=== PATIENT | female | born 1950 | race Caucasian/White ===

== ENCOUNTER → 2018-01-10 | Outpatient (CLI) | payer BC ==
[~2018-01-10] MED LIST: AMLO-110 PO; ETODOLAC PO; HYDR25TA4 PO; MULT-506 PO; PRLSR20 PO
== END | disposition home or self-care (01) ==
LOC: C.LABMFLN 13:01
PROVIDERS: ATTEND Physician Assistant
DX: N39.0 Urinary tract infection, site not specified (principal); E87.6 Hypokalemia

== ENCOUNTER 2018-01-31 09:17 | Day surgery (SDC) | payer BC ==
[2017-12-23 08:53] VITALS: BMI 28.0
[2017-12-23 09:04] VITALS: Ht 165.1 cm; Wt 77.9 kg
--- NOTE | 2017-12-23 09:35 | PAT Medication Instructions ---
Service Date Dec 23, 2017. Current Home Medication List Amlodipine (Norvasc), 5 MG PO QAM Hydrochlorothiazide (Hctz), 25 MG PO QAM Multivitamin (Multivitamin), 1 TAB PO QAM Omeprazole (Prilosec), 40 MG PO QAM [Etodolac], 300 MG PO QAM Medication Instructions For Your Scheduled Surgery -Contact your surgeon for instructions for: [Etodolac], 300 MG PO QAM - Hold the following medications the morning of surgery: Hydrochlorothiazide (Hctz), 25 MG PO QAM Multivitamin (Multivitamin), 1 TAB PO QAM - Take the following medications the morning of surgery with a sip of water: Amlodipine (Norvasc), 5 MG PO QAM Omeprazole (Prilosec), 40 MG PO QAM If you have any questions please call us at [phone] or [phone] or [phone]
[2017-12-23 11:02] LABS: BASO % 0.9 %; BASO ABS # 0.05 K/uL (0-0.2); EOS % 1.5 %; EOS ABS # 0.08 K/uL (0-0.5); HEMATOCRIT 42.5 % (37-47); HEMOGLOBIN 14.6 g/dL (12.0-16.0); IG# 0.01 K/uL (0.00-0.02); LYMPH % 20.7 %; MEAN CORPUSCULAR HEMOGLOBIN 31.3 pg (25-34); MEAN CORPUSCULAR HGB CONC 34.4 g/dl (32-36); MEAN PLATELET VOLUME 9.2 fL (7.4-10.4); MONO % 13.6 %; MONO ABS # 0.72 K/uL (0.11-0.59); NEUT % 63.1 %; NEUT ABS # 3.35 K/uL (1.4-6.5); PLATELET COUNT 328 K/uL (130-400); RED CELL DISTRIBUTION WIDTH CV 13.3 % (11.5-14.5); WHITE BLOOD COUNT 5.31 K/uL (4.8-10.8)
[2017-12-23 11:29] LABS: CREATININE 0.73 mg/dl (0.60-1.20)
--- NOTE | 2018-01-30 17:14 | History and Physical ---
History & Physical Date Jan 30, 2018. Chief Complaint left shoulder pain History of Present Illness The patient is a 68 year old female with complaints of chronic left shoulder pain. She denies any significant injury to the shoulder. She was treated conservatively but failed all conservative management. She had an MRI that showed a rotator cuff tear. She is now being set up for surgical management. Past Medical/Surgical History PMH: HTN, COPD, Depression/Anxiety, Acid reflux Social hx: 3/4 ppd smoker for 51 years. Surgical hx: cholecystectomy and hysterectomy Allergies Coded Allergies: Statins (Verified Allergy, Unknown, NAUSEA AND VOMITING, 12/23/17) Home Medications Scheduled Amlodipine (Norvasc), 5 MG PO QAM Hydrochlorothiazide (Hctz), 25 MG PO QAM Multivitamin (Multivitamin), 1 TAB PO QAM Omeprazole (Prilosec), 40 MG PO QAM [Etodolac], 300 MG PO QAM Physical Examination Skin: warm/dry, no rash Eyes: normal inspection ENT: normal ENT inspection Head: normocephalic, atraumatic Neck: supple, no adenopathy, trachea midline Respiratory/Chest: lungs clear, normal breath sounds, no respiratory distress Cardiovascular: regular rate, rhythm Abdomen / GI: normal bowel sounds, non tender Extremities: + pertinent finding (left shoulder: Painful PROM and AROM. Limited AROM secondary pain. + cross arm impingement. + empty can. + belly press. Decreased strength in all directions.) Neurologic/Psych: no motor/sensory deficits, alert, oriented x 3 Diagnosis left rotator cuff tear left subacromial impingement Left AC joint DJD. Plan of Treatment Recommend a left shoulder scope with rotator cuff repair, SAD, DCE. All potential risks, benefits, complications, alternatives, and rehab have been discussed and the patient wishes to proceed. She will be scheduled for 01.31.18.
[~2018-01-31] VITALS: Ht 165.1 cm; Wt 77.9 kg
[~2018-01-31 09:17] MED LIST changes: +CEFAZOLIN 1000MG IV PUSH 7.5 ML IV SCH; +LACTATED RINGER'S 1000ML 1,000 ML IV SCH; +ROPIVACAINE 0.5% 5 MG/ML 30 ML VIAL ONE
[2018-01-31 10:12] VITALS: BP 156/74; PULSE 67; TEMP 36.5; O2SAT 97
[2018-01-31] MEDS ORDERED: ONDANSETRON INJ 2 MG/ML 2 ML VIAL ONE (10:38)
[2018-01-31] MEDS ORDERED: MIDAZOLAM HCL 1 MG/ML 2ML VIAL ONE (10:38)
[2018-01-31] MEDS ORDERED: LIDOCAINE HCL 2% 2 ML VIAL (20MG/ML) ONE (10:38)
[2018-01-31] MEDS ORDERED: PROPOFOL IV EMULSION 10 MG/ML 20 ML VIAL IV ONE (10:38)
[2018-01-31] MEDS ORDERED: FENTANYL CITRATE INJ 50 MCG/1 ML 2 ML VIAL ONE (10:38)
[2018-01-31] MEDS ORDERED: DEXAMETHASONE SOD INJ 4 MG/ML VIAL ONE (10:38)
--- NOTE | 2018-01-31 11:01 | History & Physical Bridge Note ---
H&P Re-Evaluation Bridge Note: I have examined the patient, reviewed the History & Physical and in the interval since the performance of the History & Physical I have noted the following changes of clinical significance: No changes noted
[2018-01-31] MEDS ORDERED: EpINEphrine HCL INJ 1 MG/ML 1ML SYRINGE ONE ×2 (11:14→13:21)
[2018-01-31] MEDS ORDERED: BUPIVACAINE/EPINEPHRINE 0.5% MPF 1:200,000 30 ML VIAL ONE (12:24)
[2018-01-31] MEDS ORDERED: ROCURONIUM BROMIDE 10 MG/ML 5 ML VIAL IV ONE (12:26)
[2018-01-31] MEDS ORDERED: SODIUM CHLORIDE 0.9% INJ 10 ML VIAL ONE (12:26)
[2018-01-31] MEDS ORDERED: EpHEDrine SULFATE INJ 50 MG/ML AMP ONE (12:26)
[2018-01-31] MEDS ORDERED: EpHEDrine SULFATE INJ 50 MG/ML AMP IV PRN (12:30)
[2018-01-31] MEDS ORDERED: ONDANSETRON INJ 2 MG/ML 2 ML VIAL IV PRN ×2 (12:30→14:30)
[2018-01-31] MEDS ORDERED: ATROPINE SULFATE 0.1 MG/ML 5ML SYR IV PRN (12:30)
[2018-01-31] MEDS ORDERED: CEFAZOLIN SOD 1 GM VIAL ONE (13:16)
[2018-01-31] MEDS ORDERED: GLYCOPYRROLATE INJ 0.2 MG/ML VIAL ONE (13:16)
[2018-01-31] MEDS ORDERED: NEOSTIGMINE METHYLSULFATE 5 MG/5 ML SYR ONE (13:16)
[2018-01-31] MEDS ORDERED: LARYING-O-JET KIT (LTA) ONE (13:47)
--- NOTE | 2018-01-31 14:15 | [facility] Post Operative Brief Note ---
Immediate Operative Summary Operative Date Jan 31, 2018. Pre-Operative Diagnosis Left shoulder rotator cuff tear Left shoulder subacromial impingement Left Acromioclavicular Degenerative Joint Disease Post-Operative Diagnosis Left shoulder rotator cuff tear Left shoulder subacromial impingement Left Acromioclavicular Degenerative Joint Disease Left shoulder labral tear Left shoulder synovitis Procedure(s) Performed 1. Left Shoulder Arthroscopy 2. Subacromial Decompression with acromioplasty 3. Debridement of shoulder Labrum 4. Arthroscopic Synovectomy 5. Arthroscopic Distal Clavicle Excision 6. Arthroscopic Rotator Cuff Repair Surgeon Dr. Jan Pardo Payroll And Benefits Analyst Surgeon(s) German Fox PA-C Estimated Blood Loss 3cc Findings Consistent with Post-Op Diagnosis Specimens none per surgeon Drains None Anesthesia Type General Regional Complication(s) none Disposition Accompanied Pt To Recover: no Disposition: Recovery Room / PACU
[2018-01-31] MEDS ORDERED: PROM25TA9 PO (14:26)
[2018-01-31] MEDS ORDERED: OXYC-57 PO (14:26)
--- NOTE | 2018-01-31 14:27 | Discharge Instructions ---
Discharge Instructions Date of Service Jan 31, 2018. Admission Reason for Admission: Left Shoulder Impingement Syndrome, Osteoarthritis Discharge Discharge Diagnosis / Problem: left shoulder rotator cuff tear Discharge Goals Goal(s): Decrease discomfort, Improve function Activity Recommendations Activity Limitations: per Instructions/Follow-up section . Instructions / Follow-Up Instructions / Follow-Up U DISCHARGE INSTRUCTIONS: ROTATOR CUFF REPAIR SELF CARE INSTRUCTIONS A. You are permitted to loosen your sling/immobilizer to move your elbow, wrist , and hand to prevent stiffness. You should use your well arm (good arm) to assist the operated extremity when trying to raise the arm away from the body, hygiene purposes. Do NOT actively try to use/engage your shoulder muscles in operative arm at this time. You should NOT do overhead activity, lifting, or attempt to reach behind your back. B. You may/may not be instructed to start Physical Therapy upon discharge depending upon the size and difficulty of the repair. You will be provided a prescription for therapy with specific restrictions, if needed, at time of discharge. C. At 48 hours post-operatively, you may change your dressing. (Leave white steri-strips intact if present). Use band-aids and change daily. You are allowed to shower at this time and get the incision area wet, but DO NOT soak or submerge incision area in water. (No baths, swimming pools, hot tubs) D. Do NOT apply soap or any ointment/lotions directly over incision. E. You may use ice as needed to operative shoulder SPECIAL CARE INSTRUCTIONS: VERY IMPORTANT TO READ AND REVIEW A. There are a few signs you need to watch for after you are home. Call [facility] at [phone] if you experience any of the following: a. Increased severe shoulder pain. Some pain is expected especially when you exercise b. Increased swelling in your shoulder or arm; pain or swelling in either upper extremity. (Note: swelling and stiffness is normal and expected for several weeks post op, depending on type of shoulder surgery you had). c. Any fluid or drainage from the incision; redness of the incision. d. Shortness of breath or chest pain. B. Please call [facility] at [phone] if you have any questions or concerns about your operation or recovery. C. Call your physician if: a. Temperature is greater than 101 degrees (F). b. Pain is not relieved by prescribed pain medications. c. Increase drainage or redness from incision. d. Unanswered questions or concerns. D. Pain Medication: a. You will be prescribed pain medication upon discharge that should last till your first post-operative appointment. b. If you experience nausea and/or skin rash, discontinue this medication and contact our office for an alternative medication. c. Caution- narcotic pain medication can cause constipation. FOLLOW UP VISIT: Please call [facility] at [phone] to schedule a follow up appointment 10-14 days from your surgery date. Current Hospital Diet Patient's current hospital diet: Discharge Diet Recommended Diet: Regular Diet Procedures Procedures Performed: 1. Left Shoulder Arthroscopy 2. Subacromial Decompression with acromioplasty 3. Debridement of shoulder Labrum 4. Arthroscopic Synovectomy 5. Arthroscopic Distal Clavicle Excision 6. Arthroscopic Rotator Cuff Repair Pending Studies Studies pending at discharge: no Medical Emergencies . Who to Call and When: Medical Emergencies: If at any time you feel your situation is an emergency, please call 911 immediately. . Non-Emergent Contact Non-Emergency issues call your: Surgeon Call Non-Emergent contact if: temperature is above 101, your pain is not controlled, your pain is worsening, wound has increased drainage, wound has increased redness . "Provider Documentation" section prepared by German Fox. .
[2018-01-31] MEDS ORDERED: OXYCODONE HCL IR 5 MG TAB (IMMEDIATE RELEASE) PO PRN ×2 (14:30)
[2018-01-31] MEDS ORDERED: ACETAMINOPHEN 325 MG TAB PO PRN (14:30)
[2018-01-31] MEDS ORDERED: KETOROLAC TROMETHAMINE 30 MG/ML VIAL IV. PRN (14:30)
[2018-01-31] MEDS ORDERED: MoRPHine SULFATE 2 MG/ML CARP IV PRN (14:30)
[2018-01-31] MEDS ORDERED: OXYCODONE/ACETAMINOPHEN 5-325 TAB PO PRN (14:30)
--- NOTE | 2018-01-31 15:09 | Anesthesiology Progress Note ---
Anesthesia Post Op Note Date & Time Jan 31, 2018 at 15:09 Vital Signs Pain Intensity: 0 Vital Signs Past 12 Hours Date Time Temp Pulse Resp B/P (MAP) Pulse Ox O2 Delivery O2 Flow Rate FiO2 01/31/18 14:55 64 16 138/61 93 Nasal Cannula 2 01/31/18 14:45 62 16 157/60 93 Nasal Cannula 4 01/31/18 14:35 67 16 154/56 93 Nasal Cannula 4 01/31/18 14:26 36.0 97 16 154/63 95 Nasal Cannula 4 01/31/18 10:12 36.5 67 20 156/74 (101) 97 Room Air Notes Mental Status: alert / awake / arousable, participated in evaluation Pt Amnestic to Procedure: Yes Nausea / Vomiting: adequately controlled Pain: adequately controlled Airway Patency, RR, SpO2: stable & adequate BP & HR: stable & adequate Hydration State: stable & adequate Anesthetic Complications: no major complications apparent Anesthetic Complications: block is functioning well.
[2018-01-31 15:46] VITALS: BP 122/56; PULSE 58; TEMP 36.6; O2SAT 92
--- NOTE | 2018-01-31 19:16 | OPERATIVE REPORT ---
DATE OF OPERATION: 01/31/2018 PREOPERATIVE DIAGNOSES: 1. Left shoulder rotator cuff tear. 2. Tear of the glenoid labrum. 3. Subacromial impingement syndrome. 4. Acromioclavicular joint degenerative joint disease. 5. Synovitis POSTOPERATIVE DIAGNOSES: 1. Left shoulder rotator cuff tear. 2. Tear of the glenoid labrum. 3. Subacromial impingement syndrome. 4. Acromioclavicular joint degenerative joint disease. 5. Synovitis PROCEDURE: 1. Left shoulder arthroscopy with arthroscopic rotator cuff repair. 2. Debridement of the glenoid labrum. 3. Subacromial decompression with acromioplasty. 4. Distal clavicle excision of 10 mm distal clavicle. 5. Arthroscopic synovectomy of the shoulder. SURGEON: Jan Pardo DO WOOD MILLING MACHINE OPERATOR: German Fox PA-C who was present for patient positioning, sterile prep and drape, management of retractors and instruments. He was present through the critical portions of the case including wound closure, application of sterile dressing and transport of the patient to recovery. ANESTHESIA: General endotracheal tube with regional block. SPECIMENS: None. DRAINS: None. COMPLICATIONS: None. BLOOD LOSS: 2 mL PERTINENT HISTORY: This is a 68-year-old female with chronic progressive ongoing left shoulder pain particularly with abduction and external rotation. This has been ongoing for over 6 months. The patient attempted and failed conservative management including physical therapy, physician-directed home exercises, anti-inflammatories, steroid injection, rest, and activity modification. She had an MRI which demonstrated a full thickness rotator cuff tear, left shoulder with a possible labral tear, subacromial impingement with subacromial spurring and acromioclavicular joint degenerative joint disease. The patient is scheduled for surgery as indicated. All potential risks, benefits, complications, alternatives, rehab, potential for incomplete relief of symptoms, need for further surgery, DVT, PE, , persistent pain, swelling, scarring, weakness, neurovascular injury, wound complications, hardware failure were discussed with the patient. The patient decided to proceed with the procedure as indicated. The patient received a regional nerve block of the left shoulder in the preop holding area. She was then taken to the operative suite, placed supine on the operating room table. After review of the consent and identification of proper operative site, patient was anesthetized, endotracheal tube was placed and placed in a beach chair position using the Schlein positioner and all bony prominences were properly padded and protected. Next, the left upper extremity was then sterilely prepped and draped in usual fashion and then the 18 gauge spinal needle was placed into the posterior portal site through the left shoulder and then the joint was injected with approximately 15 mL of 0.5% Marcaine with epinephrine. This was then followed by 11-blade scalpel incision, followed by placement of blunt trocar and sleeve camera and inflow to the posterior portal site. Next, under direct visualization, 18 gauge spinal needle was then placed through the anterior portal site adjacent to the coracoid process followed by 11-blade scalpel incision, followed by placement of a blunt trocar and sleeve and then a small blunt ball-tipped probe was inserted. The trocar was removed and the cannula was removed anteriorly. Next, sequential diagnostic arthroscopy demonstrated intact bicep tendon with a tear of the supraspinatus tendon, full thickness. There was noted to be a partial tear of the glenoid labrum, some thinning, and softening of the articular surfaces of the humeral head and the glenoid. No loose bodies. There was noted to be moderate synovitis throughout the shoulder. Next, a 4.5 mm sucker shaver was introduced and the glenoid labrum was then debrided back to stable labral to stable labral tissue and a synovectomy was then performed throughout the joint and a debridement of the undersurface of the rotator cuff to gain appropriate visualization of the extent of the tear. Next the whirlwind ablator was then inserted and synovectomy was then completed and the ablator was then removed. The inferior pouch was noted to be unremarkable and the rotator cuff tear was then marked with, #1 PDS placed through an 18 gauge spinal needle of the anterior aspect of the shoulder. Next, the scope was then directed in the subacromial space and under direct visualization, lateral portal site was established using an 18 gauge spinal needle, and an 11 blade scalpel incision following placement of a whirlwind ablator. At this point, a bursectomy, subacromial decompression was performed. There was noted to be inferiorly exostosis at the undersurface of the acromion. Rotator cuff tear was visualized and noted to be through and through and the marker #1 PDS was removed and this was unnecessary at this time. Next, the distal clavicle was also debrided and bursectomy was completed with the ablator. Next, the 5.5 mm barrel bur was then used to perform an acromioplasty and smooth the undersurface of the subacromial space to the bony undersurface of the subacromial space and then a distal clavicle excision was then performed resecting 10 mm distal clavicle with the 5.0 mm bur. Next, the rotator cuff was then debrided with a 4.5 mm sucker shaver down to bleeding bone. The bur was then used to decorticate the area of planned rotator cuff repair. Next, the green cannula was placed laterally. The tangerine orange cannula was placed anteriorly and then a 5.5 mm Healicoil [employer] anchor was then placed into the humeral head under direct visualization. Using appropriate suture shuttling and suture passing technique, the ExpresSew was then used to perform a 3-0 horizontal mattress suture repair of the rotator cuff tear producing anatomic fixation of the supraspinatus tendon back to the humeral head. There was noted to be some abundance of tissue laterally. At this point, it was decided to place a 5.5 mm footprint anchor laterally to strengthen and smooth the cuff tissue for the repair. This was then impacted laterally using standard technique and a firm, well fixated, smooth-contoured rotator cuff repair was completed without any evidence of dog-earing. Next, the cannulas were removed, all excess fluid was then expressed from the subacromial space and the glenohumeral joint and the portal sites were closed using interrupted 4-0 nylon sutures. Sterile compressive dressings were applied to the shoulder. The left upper extremity was then placed into a simple sling. The patient was then awakened and taken to recovery in stable condition. I attest to the content of the Intraoperative Record and any orders documented therein. Any exception s are noted below.
== END 2018-01-31 16:18 | disposition home or self-care (01) ==
LOC: C.ACU 09:17
PROVIDERS: ATTEND Orthopaedic Surgery Sports Medicine
DX: M75.102 Unspecified rotator cuff tear or rupture of left shoulder, not specified as traumatic (principal); S43.402A Unspecified sprain of left shoulder joint, initial encounter; M75.42 Impingement syndrome of left shoulder; M65.812 Other synovitis and tenosynovitis, left shoulder; M25.812 Other specified joint disorders, left shoulder; J44.9 Chronic obstructive pulmonary disease, unspecified; I10 Essential (primary) hypertension; K21.9 Gastro-esophageal reflux disease without esophagitis; F32.9 Major depressive disorder, single episode, unspecified; Z90.49 Acquired absence of other specified parts of digestive tract; Z90.710 Acquired absence of both cervix and uterus; F17.200 Nicotine dependence, unspecified, uncomplicated; Z79.899 Other long term (current) drug therapy

== ENCOUNTER 2023-12-30 15:15 | Inpatient (IN) ==
--- NOTE | 2023-12-30 16:14 | XRay Report ---
SINGLE VIEW CHEST CLINICAL HISTORY: Generalized weakness. FINDINGS: A PA chest radiograph is compared to study dated 07/17/2021 and correlated with chest CT da priscilla 11/30/2021. The cardiomediastinal silhouette is unremarkable noting atherosclerotic calcification of the thoracic aorta. Emphysema and chronic interstitial thickening is similar to previous. A 13 mm irregular lesion is again seen in the right upper lobe. No airspace consolidation or pleural effusion is identified. No pneumothorax is seen. The skeletal structures are osteopenic. The bony thorax is g rossly intact. Cholecystectomy clips are noted in the right upper quadrant. IMPRESSION: 1. Emphysematous change with no acute cardiopulmonary abnormality. 2. A 13 mm opacity in the right upper lobe is again noted. 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 Additional lesions seen by CT are not wel l-visualized by x-ray. ACT 112: Negative or not required by law. Electronically signed by: Mracello Romero M.D. 12/30/2023 4:13 PM
[2023-12-30 16:18] LABS: Basophils # (auto) 0.04 K/uL (0.00-0.20); Basophils % (auto) 0.3 %; Hematocrit (blood only) 41.7 % (37.0-47.0); Hemoglobin 13.7 g/dl (12.0-16.0); Immature Granulocytes # (auto) 0.19 K/uL (0.01-0.20); Immature Granulocytes % (auto) 1.4 %; Lymphocytes # (auto) 0.99 K/uL (1.20-3.40); Lymphocytes % (auto) 7.3 %; Mean Corpuscular Hemoglobin 31.5 pg (25.0-34.0); Mean Corpuscular Hgb Conc 32.9 g/dL (32.0-36.0); Mean Corpuscular Volume 95.9 fL (80.0-100.0); Mean Platelet Volume 9.3 fL (9.4-12.4); Monocytes # (auto) 0.58 K/uL (0.11-0.59); Monocytes % (auto) 4.3 %; Neutrophils # (auto) 11.67 K/uL (1.40-6.50); Neutrophils % (auto) 86.7 %; Platelet Count 284 K/uL (130-400); RDW Coefficient of Variation 14.6 % (11.5-14.5); RDW Standard Deviation 52.2 fL (36.4-46.3); Red Blood Count 4.35 M/uL (4.20-5.40); White Blood Count 13.47 K/ul (4.8-10.8)
[2023-12-30 16:36] LABS: Anion Gap 6 (3-11); BUN Creatinine Ratio 23.9 (10-20); Blood Urea Nitrogen 21 mg/dl (6-23); Calcium 7.8 mg/dl (8.6-10.3); Carbon Dioxide 25 mmol/L (21-32); Chloride 108 mmol/L (98-107); Est GFR (African American) 74.5 ml/min; Est GFR (Non-African American) 64.3 ml/min; Glucose 220 mg/dl (70-99(Fasting)); Potassium 4.4 mmol/L (3.5-5.1); Sodium 139 mmol/L (136-145)
[2023-12-30 16:39] LABS: INR 1.1 (0.9-1.1); Partial Thromboplastin Ratio 0.8; Partial Thromboplastin Time 22 Seconds (21-31); Prothrombin Time 11.9 Seconds (9.0-12.0)
[2023-12-30 17:03] LABS: Alanine Aminotransferase 835 U/L (7-52); Albumin Globulin Ratio 1.3 (0.9-2); Albumin Level 2.9 gm/dl (3.4-5.0); Alkaline Phosphatase 100 U/L (34-104); Aspartate Aminotransferase 552 U/L (13-39); Bilirubin,Total 0.5 mg/dl (0.2-1.0); Globulin 2.2 gm/dl (2.5-4.0); Total Protein 5.1 gm/dl (6.0-8.3)
--- NOTE | 2023-12-30 18:18 | Emergency Department Note ---
Impression & Plan Weakness generalized, Ambulatory dysfunction, Transaminitis, Hypophosphatemia, Low blood magnesium, History of lung cancer ED Provider Note NAME: WANDA ROTH AGE: 73 SEX: F : 1950 ARRIVES VIA: Walk-In INFORMANT: Patient ED PROVIDER(S): Fredi Nolen MD CHIEF COMPLAINT: Weakness, referred. PLAN: Disposition: Admit MEDICAL DECISION MAKING: The patient is a pleasant 73-year-old woman with an extensive past medical history including history of lung cancer with last treatment in 2022 following with the cancer center, history of secondary adrenal insufficiency on hydrocortisone, type 2 diabetes, peripheral arterial disease, hypertension, hyperlipidemia, GERD, COPD who presents to the emergency department via walk-in, accompanied by family referred by her outpatient providers including oncology for evaluation of worsening lower extremity weakness which has been progressive over the past year but in particular worse over the past couple of months and additionally more severe over the past week. They add that they are aware that the patient had rising liver function tests and was scheduled to have a liver ultrasound tomorrow but they canceled this due to being referred to the emergency department today. They also added that she had a polyp on a colonoscopy recently but they understand this was precancerous only and can follow-up routinely for repeat colonoscopy. Additionally, there was plans to have an MRI of her brain due to ongoing symptoms of dizziness over the past several months. They report that she had developed scattered bruising of her arms and legs recently and contacted her oncology office and was prescribed a course of steroids but they are not sure what they were being treated for. She also was treated with an antibiotic, last week but they are not sure what for. Patient denies any urinary symptoms. She denies any falls. She denies any cough, congestion. The family reports that she appears more short of breath than usual over the past week but the patient does not necessarily notice this herself. They report that they also recently saw the vascular surgeon and her understanding was that her vascular exam was reassuring and there were no concerns for any new occlusions following her prior procedure. On my evaluation the patient is fatigued appearing but no distress, afebrile with stable vital signs. She appears clinically dry. She has palpable and dopplerable PT, AT, DP pulses bilaterally. Capillary refill is brisk. Feet are warm and well-perfused. EKG without overt acute ischemia. Chest x-ray negative for acute cardiopulmonary process and note is made of the patient's spiculated lung nodule correlates with her history of lung cancer. WBC 13.4 K, nonspecific. H/H and platelets within normal limits. Chemistry without metabolic acidosis. BUN/creatinine 23, consistent with patient's clinically dry appearance. Phosphorus 1.7 with oral repletion provided. Magnesium 1.7, low normal with IV repletion provided. AST and ALT are 552 and a 35, respectively increased from last month with normal total bilirubin and alk phos. High-sensitivity troponin 24.2, nonspecific. TSH within limits. UA without convincing evidence of infection and epithelials are present. CT of the head, C-spine, chest, abdomen pelvis were performed. No acute findings are identified. The patient's spiculated lung nodule was described as having progressed however this is compared to CT of 2021 and in the interim the patient had received treatment. Most recently, the patient had a PET scan in April 2023 that showed decrease in size and FDG activity suggesting treatment response. Upon evaluation patient denied any significant change in her symptoms of weakness. However, family and the patient ultimately agreed/preferred plan for admission for further evaluation including possible liver ultrasound to assess for LFTs and PT/OT as well as consultation with the patient's medicare insurance specialist. Case was discussed with ROCIO Victor hospitalist, who will evaluate the patient for admission. Triage Nursing notes reviewed and agree them. Prior/external medical records reviewed Vital Signs: reviewed Differential diagnosis: Infection, dehydration, metabolic abnormality, hypo/hyperglycemia, electrolyte disturbance, anemia, hypoxia, cardiac sources, intracerebral event, toxicologic, neurologic, as well as other pathologies. ER treatment provided: See below. Diagnostics interpreted by me: ECG: Normal sinus rhythm, 80 bpm, no ectopy, no overt ST elevation or depression, QTc 422, QRS 60 Cardiac Monitoring: An order for continuous cardiac monitoring was placed and demonstrated normal sinus rhythm, 88 bpm, no ectopy Laboratory studies: See below Imaging studies: See below Consultation(s): ROCIO Victor hospitalist HPI: The patient is a pleasant 73-year-old woman with an extensive past medical history including history of lung cancer with last treatment in 2022 following with the cancer center, history of secondary adrenal insufficiency on hydrocortisone, type 2 diabetes, peripheral arterial disease, hypertension, hyperlipidemia, GERD, COPD who presents to the emergency department via walk-in, accompanied by family referred by her outpatient providers including oncology for evaluation of worsening lower extremity weakness which has been progressive over the past year but in particular worse over the past couple of months and additionally more severe over the past week. They add that they are aware that the patient had rising liver function tests and was scheduled to have a liver ultrasound tomorrow but they canceled this due to being referred to the emergency department today. They also added that she had a polyp on a colonoscopy recently but they understand this was precancerous only and can follow-up routinely for repeat colonoscopy. Additionally, there was plans to have an MRI of her brain due to ongoing symptoms of dizziness over the past several months. They report that she had developed scattered bruising of her arms and legs recently and contacted her oncology office and was prescribed a course of steroids but they are not sure what they were being treated for. She also was treated with an antibiotic, last week but they are not sure what for. Patient denies any urinary symptoms. She denies any falls. She denies any cough, congestion. The family reports that she appears more short of breath than usual over the past week but the patient does not necessarily notice this herself. They report that they also recently saw the vascular surgeon and her understanding was that her vascular exam was reassuring and there were no concerns for any new occlusions following her prior procedure. ROS: See above HPI for pertinent positives & negatives. A total of 10 systems reviewed and were otherwise negative. VITALS:See Below PHYSICAL EXAMINATION: GENERAL: Awake, alert, fatigued-appearing, in no distress HENT: Normocephalic, atraumatic. Oropharynx with dry mucous membranes and otherwise unremarkable. EYES: Normal conjunctiva. Sclera non-icteric. NECK: Supple. No nuchal rigidity. FROM. No JVD. RESPIRATORY: Clear to auscultation. CARDIAC: Regular rate, normal rhythm. Extremities warm and well perfused. Pulses equal. ABDOMEN: Soft, non-distended. No tenderness to palpation. No rebound or guarding. No masses. RECTAL: Deferred. MUSCULOSKELETAL: Chest examination reveals no tenderness. The back is symmetrical on inspection without obvious abnormality. There is no CVA tenderness to palpation. No joint edema. LOWER EXTREMITIES: Calves are equal size bilaterally and non-tender. No edema. No discoloration. Patient has palpable and dopplerable PT, AT, DP pulses bilaterally NEURO: Normal sensorium. No sensory or motor deficits noted. 5/5 strength of bilateral upper extremities. 4/5 strength with hip flexion of bilateral lower extremities. Reflexes 1+. No clonus. SKIN: No rash or jaundice noted. Fredi Nolen MD Past Med/Surg History Medical History Fatigue Vitamin D deficiency Cough productive of purulent sputum Pharyngitis Peripheral neuropathy due to chemotherapy Paresthesia of lower extremity Greater trochanteric bursitis of left hip Neurogenic claudication Chronic low back pain Depression History of COVID-19 09/2022 fatigue- no hospitalization , no current issues Peripheral vascular disease of lower extremity Adenocarcinoma, lung does chemo treatments every 3 weeks -last done 07/04/[address] Karimi due again 07/25/22 Neuropathy Thyroid nodule Lumbar radiculopathy GERD (gastroesophageal reflux disease) Anxiety Hypercholesterolemia Hypertension COPD (chronic obstructive pulmonary disease) Arthritis Heart murmur Surgical History Hx of cataract extraction rt. History of lung biopsy (08/14/21) CT Guided Percutaneous Right Upper Lobe Lung [place]. [place] [facility] [place]oscopy (07/17/21) EBUS with Biopsy Dr. Wolfgang Dumont S/P thyroid biopsy benign History of incisional hernia repair (08/06/19) Laparoscopic Incisional Hernia Repair with Mesh Dr. Bates History of lumpectomy of both breasts BENIGN TUMORS Hx of shoulder surgery LEFT Hx of colonoscopy 04/15/23 Hx of cardiac cath 2002 NO STENTS H/O: hysterectomy (1985) History of laparoscopic cholecystectomy Family History Mother , Passed Age 84 Cancer Hypertension Stroke Father No problems noted. Sister Cancer Uterus Brother , Passed Age 60's No problems noted. Brother , Passed Age 73 No problems noted. Daughter No problems noted. Other No family history of adverse response to anesthesia Social History Smoking Status: Former smoker Tobacco Type: Cigarettes packs per day: 1; Cigarettes Per Day: 1 PPD; Second Hand Exposure: Yes; Do You Dip or Chew Tobacco: No; Hx Alcohol Use: No Hx Substance Use: No Preferred Language: Greenlandic Communication Ability: Effective Visual Impairment: No Limitations Hearing Ability: Normal Museum Exhibit Technician Required: No Beliefs That Will Affect Care: None marital status: Current Living Situation: Spouse current occupational status: retired current occupation: Retired [employer] How many Children do You have: 1 Feels Safe at Home: Yes Childhood Exposure to Second-Hand Smoke: Yes (step father smoked ) Diet: regular caffeine: No during the past year weight has: decreased > 10 lbs Dental Care, Regularly: No Assistive Devices: None Allergies Allergies Allergy/AdvReac Type Severity Reaction Status Date / Time No Known Allergies Allergy Verified 12/30/23 19:21 Home Meds Home Medications Medication Instructions Recorded Confirmed clopidogrel 75 mg tablet 75 mg PO DAILY 01/03/23 12/30/23 potassium chloride 10 mEq 20 meq PO DAILY 03/12/23 12/30/23 tablet,extended release aspirin 81 mg tablet,delayed 81 mg PO DAILY 04/16/23 12/30/23 release (Adult Aspirin Regimen) hydrocortisone 5 mg tablet See Rx Instructions PO TID 12/03/23 12/30/23 metformin 500 mg tablet,extended 1,000 mg PO BID 12/17/23 12/30/23 release 24 hr methylprednisolone 4 mg tablets in 0 mg PO HS 12/30/23 12/30/23 a dose pack Previous Rx's Medication Instructions Recorded omeprazole 40 mg capsule,delayed 40 mg PO QPM #90 caps 02/10/23 release rosuvastatin 40 mg tablet 40 mg PO DAILY #90 tabs 06/12/23 cholecalciferol (vitamin D3) 25 25 mcg PO DAILY #90 caps 08/07/23 mcg (1,000 unit) capsule amlodipine 10 mg tablet (Norvasc) 5 mg (1/2 x 10 mg) PO QPM #90 tabs 08/11/23 blood sugar diagnostic (OneTouch #100 ea 09/20/23 Verio test strips) blood-glucose meter (OneTouch #1 ea 09/20/23 Verio Flex Meter) lancets 33 gauge (OneTouch Delica #100 ea 09/20/23 Plus Lancet) ezetimibe 10 mg tablet (Zetia) 10 mg PO QPM #90 tabs 10/01/23 urea 20 % topical cream 1 applic topical DAILY #85 grams 10/24/23 ondansetron HCl 4 mg tablet 4 mg PO Q8H PRN nausea and 11/12/23 vomiting 5 days #30 tabs losartan 50 mg tablet 25 mg (1/2 x 50 mg) PO DAILY #30 12/17/23 tabs Results & Data (ED) Vital Signs Vital Signs - 24 hr 12/30/23 15:37 12/30/23 18:10 12/30/23 18:14 Temperature 36.6 C Temperature Source Temporal Artery Scan Pulse Rate 80 73 Pulse Rate [Apical] 72 Pulse Rate from SpO2 Sensor Respiratory Rate 20 16 Respiratory Effort / Characteristics Non-Labored Spontaneous Respiratory Depth Normal Respiratory Pattern Regular Blood Pressure 175/60 H Blood Pressure [Left Arm] 189/70 H Blood Pressure Mean 98 Blood Pressure Mean [Left Arm] 109 Blood Pressure Position Sitting Pulse Oximetry 97 98 Oxygen Delivery Method Room Air Room Air Sepsis Recent Fever Within 48 Hours No Sepsis New/Unexplained Change in Mental Status No Sepsis Action Taken by Nursing No Action Required 12/30/23 18:14 12/30/23 18:30 12/30/23 19:00 Temperature Temperature Source Pulse Rate 72 94 H 71 Pulse Rate [Apical] Pulse Rate from SpO2 Sensor 73 87 71 Respiratory Rate 23 18 23 Respiratory Effort / Characteristics Respiratory Depth Respiratory Pattern Blood Pressure Blood Pressure [Left Arm] Blood Pressure Mean Blood Pressure Mean [Left Arm] Blood Pressure Position Pulse Oximetry 98 97 98 Oxygen Delivery Method Sepsis Recent Fever Within 48 Hours Sepsis New/Unexplained Change in Mental Status Sepsis Action Taken by Nursing 12/30/23 19:30 12/30/23 20:17 12/30/23 20:18 Temperature Temperature Source Pulse Rate 71 79 Pulse Rate [Apical] Pulse Rate from SpO2 Sensor 71 Respiratory Rate 24 19 Respiratory Effort / Characteristics Respiratory Depth Respiratory Pattern Blood Pressure 167/66 H Blood Pressure [Left Arm] Blood Pressure Mean 109 Blood Pressure Mean [Left Arm] Blood Pressure Position Pulse Oximetry 97 Oxygen Delivery Method Sepsis Recent Fever Within 48 Hours Sepsis New/Unexplained Change in Mental Status Sepsis Action Taken by Nursing 12/30/23 20:18 12/30/23 20:30 12/30/23 21:00 Temperature Temperature Source Pulse Rate 78 75 72 Pulse Rate [Apical] Pulse Rate from SpO2 Sensor 79 75 72 Respiratory Rate 18 14 16 Respiratory Effort / Characteristics Respiratory Depth Respiratory Pattern Blood Pressure Blood Pressure [Left Arm] Blood Pressure Mean Blood Pressure Mean [Left Arm] Blood Pressure Position Pulse Oximetry 99 98 98 Oxygen Delivery Method Sepsis Recent Fever Within 48 Hours Sepsis New/Unexplained Change in Mental Status Sepsis Action Taken by Nursing 12/30/23 21:30 12/30/23 22:00 12/30/23 22:00 Temperature Temperature Source Pulse Rate 71 71 Pulse Rate [Apical] Pulse Rate from SpO2 Sensor 71 71 Respiratory Rate 21 18 Respiratory Effort / Characteristics Respiratory Depth Respiratory Pattern Blood Pressure Blood Pressure [Left Arm] 167/66 H Blood Pressure Mean Blood Pressure Mean [Left Arm] 99 Blood Pressure Position Pulse Oximetry 97 97 Oxygen Delivery Method Sepsis Recent Fever Within 48 Hours Sepsis New/Unexplained Change in Mental Status Sepsis Action Taken by Nursing 12/30/23 22:11 Temperature Temperature Source Pulse Rate 72 Pulse Rate [Apical] Pulse Rate from SpO2 Sensor Respiratory Rate Respiratory Effort / Characteristics Respiratory Depth Respiratory Pattern Blood Pressure Blood Pressure [Left Arm] Blood Pressure Mean Blood Pressure Mean [Left Arm] Blood Pressure Position Pulse Oximetry Oxygen Delivery Method Sepsis Recent Fever Within 48 Hours Sepsis New/Unexplained Change in Mental Status Sepsis Action Taken by Nursing Laboratory Data Attestation: I reviewed the patient's lab results. 12/30/23 15:55 12/30/23 15:55 Lab Results 12/30/23 Range/Units 15:55 WBC 13.47 H (4.8-10.8) K/ul RBC 4.35 (4.20-5.40) M/uL Hgb 13.7 (12.0-16.0) g/dl Hct 41.7 (37.0-47.0) % MCV 95.9 (80.0-100.0) fL MCH 31.5 (25.0-34.0) pg MCHC 32.9 (32.0-36.0) g/dL RDW Std Deviation 52.2 H (36.4-46.3) fL RDW Coeff of Aury 14.6 H (11.5-14.5) % Plt Count 284 (130-400) K/uL MPV 9.3 L (9.4-12.4) fL Immature Gran % (Auto) 1.4 % Neut % (Auto) 86.7 % Lymph % (Auto) 7.3 % Bell % (Auto) 4.3 % Eos % (Auto) 0.0 % Baso % (Auto) 0.3 % Neut # (Auto) 11.67 H (1.40-6.50) K/uL Lymph # (Auto) 0.99 L (1.20-3.40) K/uL Bell # (Auto) 0.58 (0.11-0.59) K/uL Eos # (Auto) 0.00 (0.00-0.50) K/uL Baso # (Auto) 0.04 (0.00-0.20) K/uL Immature Gran # (Auto) 0.19 (0.01-0.20) K/uL PT 11.9 (9.0-12.0) Seconds INR 1.1 (0.9-1.1) APTT 22 (21-31) Seconds PTT Ratio 0.8 Sodium 139 (136-145) mmol/L Potassium 4.4 (3.5-5.1) mmol/L Chloride 108 H (98-107) mmol/L Carbon Dioxide 25 (21-32) mmol/L Anion Gap 6 (3-11) BUN 21 (6-23) mg/dl Creatinine 0.88 (0.6-1.2) mg/dl Est Cr Clr Drug Dosing Not Reportable Est GFR ( Amer) 74.5 ml/min Est GFR (Non-Af Amer) 64.3 ml/min BUN/Creatinine Ratio 23.9 H (10-20) Glucose 220 H (70-99(Fasting)) mg/dl Calcium 7.8 L (8.6-10.3) mg/dl Phosphorus 1.7 L (2.5-4.9) mg/dl Magnesium 1.7 (1.7-2.4) mg/dl Total Bilirubin 0.5 (0.2-1.0) mg/dl AST 552 H (13-39) U/L ALT 835 H (7-52) U/L Alkaline Phosphatase 100 (34-104) U/L Troponin I High Sens 24.2 H (0-14) pg/ml Total Protein 5.1 L (6.0-8.3) gm/dl Albumin 2.9 L (3.4-5.0) gm/dl Globulin 2.2 L (2.5-4.0) gm/dl Albumin/Globulin Ratio 1.3 (0.9-2) TSH 0.395 (0.300-4.500) uIu/ml Random Cortisol 22.16 mcg/dl Administered Medications Lactated Ringer's (Lr) 1,000 mls @ 80 mls/hr IV .[id number] Stop: 12/31/23 13:23 Last Admin: 12/31/23 01:33 Dose: 80 mls/hr Documented By: HENNY Discontinued Medications Sodium Chloride (Nss) 500 mls @ 999 mls/hr IV .Q31M ONE Stop: 12/30/23 19:10 Last Infusion: 12/30/23 19:44 Dose: Infused Documented By: Admin: 12/30/23 18:48 Dose: 999 mls/hr Documented By: ACC Magnesium Sulfate/Dextrose (Magnesium Sulfate / D5w) 1 gm in 100 mls @ 100 mls/hr IV NOW STA Stop: 12/31/23 00:00 Last Infusion: 12/31/23 01:36 Dose: Infused Documented By: Admin: 12/30/23 23:20 Dose: 100 mls/hr Documented By: LUIS Sodium Phosphate 9 mmol/ (Sodium Chloride) 253 mls @ 170 mls/hr IV ONE ONE Stop: 12/31/23 02:59 Last Admin: 12/31/23 01:33 Dose: 170 mls/hr Documented By: HENNY Ioversol (Optiray 350 500ml) 111 ml IV ONCE ONE Stop: 12/30/23 20:04 Last Admin: 12/30/23 20:03 Dose: 111 ml Documented By: SHANIA Miscellaneous (Patient's Height &/Or Weight Needed) 1 each N/A NOW STA Stop: 12/31/23 01:10 Last Admin: 12/31/23 01:34 Dose: 1 each Documented By: HENNY Potassium Phosphate (Pot Phosphate Monobasic W/ Sod Tab) 2 tab PO NOW STA Stop: 12/30/23 23:01 Last Admin: 12/30/23 23:20 Dose: 2 tab Documented By: LUIS Imaging Data Radiologist's Impression: Chest X-Ray 12/30/23 15:41 SINGLE VIEW CHEST CLINICAL HISTORY: Generalized weakness. FINDINGS: A PA chest radiograph is compared to study dated 07/17/2021 and correlated with chest CT dated 11/30/2021. The cardiomediastinal silhouette is unremarkable noting atherosclerotic calcification of the thoracic aorta. Emphysema and chronic interstitial thickening is similar to previous. A 13 mm irregular lesion is again seen in the right upper lobe. No airspace consolidation or pleural effusion is identified. No pneumothorax is seen. The skeletal structures are osteopenic. The bony thorax is grossly intact. Cholecystectomy clips are noted in the right upper quadrant. IMPRESSION: 1. Emphysematous change with no acute cardiopulmonary abnormality. 2. A 13 mm opacity in the right upper lobe is again noted. This remains highly suspicious for a low-grade neoplasm when correlated with the prior chest CT scan. Additional lesions seen by CT are not well-visualized by x-ray. ACT 112: Negative or not required by law. Electronically signed by: Marcello Romero M.D. 12/30/2023 4:13 PM Abdomen/Pelvis CT 12/30/23 18:37 Exam(s): CT ABDOMEN + PELVIS With Contrast IV Amt: 111ML OPTIRAY 350 EXAM: CT Abdomen and Pelvis With Intravenous Contrast CLINICAL HISTORY: Reason for exam: h/o lung ca, truncal weakness, transaminitis. TECHNIQUE: Axial computed tomography images of the abdomen and pelvis with intravenous contrast. CTDI is 66.9 mGy and DLP is 2293.08 mGy-cm. Automated exposure control was utilized for the study. A dose lowering technique was utilized adhering to the principles of ALARA. CONTRAST: Patient received 111ML OPTIRAY 350 of IV contrast COMPARISON: No relevant prior studies available. FINDINGS: ABDOMEN: Liver: Unremarkable. Gallbladder and bile ducts: Cholecystectomy. No biliary dilatation. Pancreas: Unremarkable. Spleen: Unremarkable. Adrenals: Unremarkable. Kidneys and ureters: Unremarkable. No obstructing stones. No hydronephrosis. Stomach and bowel: Unremarkable. PELVIS: Appendix: Normal appendix. Bladder: Unremarkable. Reproductive: Hysterectomy. ABDOMEN and PELVIS: Intraperitoneal space: Unremarkable. No free air. No significant fluid collection. Bones/joints: No acute fracture. Soft tissues: Unremarkable. Vasculature: Aortobiiliac atherosclerotic calcifications. Stents within the common iliac arteries and right external iliac artery. Lymph nodes: Unremarkable. IMPRESSION: No acute abnormality. Electronically signed by: Robert Ndiaye MD 12/30/23 21:34 PM Chest CTA 12/30/23 18:37 Exam(s): CTA CHEST IV Amt: 111ML OPTIRAY 350 EXAM: CT Angiography Chest With Intravenous Contrast CLINICAL HISTORY: Reason for exam: h/o lung ca, sob, r/o PE. TECHNIQUE: Axial computed tomographic angiography images of the chest with intravenous contrast. CTDI is 66.9 mGy and DLP is 2293.08 mGy-cm. Automated exposure control was utilized for the study. A dose lowering technique was utilized adhering to the principles of ALARA. MIP reconstructed images were created and reviewed. COMPARISON: Chest CT November 30, 2021 FINDINGS: Pulmonary arteries: No pulmonary embolism. Aorta: No acute findings. Normal caliber. No dissection. Lungs: Right upper lobe spiculated nodule measuring up to 1.5 cm (series 7 image 82). The size of the solid component has increased worrisome for progressive malignancy. A few additional areas of some solid nodularity mostly within the right lower lobe. Largest area measures 1.7 cm series 7 image 64, unchanged. The majority of the remainder of the nodular foci seen on the prior study have either resolved or near completely resolved suggesting that these are secondary to an infectious or inflammatory process as opposed to malignancy. Mild emphysematous changes. Pleural space: Unremarkable. Heart: Unremarkable. Bones/joints: No acute fracture. Soft tissues: Unremarkable. Lymph nodes: Unremarkable. IMPRESSION: 1. No pulmonary embolism. 2. Right upper lobe spiculated nodule measuring up to 1.5 cm (series 7 image 82). The size of the solid component has increased worrisome for progressive malignancy. 3. A few additional areas of subsolid nodularity mostly within the right lower lobe. Largest area measures 1.7 cm series 7 image 64, unchanged. The majority of the remainder of the nodular foci seen on the prior study have either resolved or near completely resolved suggesting that these are secondary to an infectious or inflammatory process as opposed to malignancy. Continued interval attention on follow-up. 4. Mild emphysematous changes. Electronically signed by: Robert Ndiaye MD 12/30/23 21:[address] 12/30/23 18:37 Exam(s): CT HEAD Without Contrast EXAM: CT Head Without Intravenous Contrast CLINICAL HISTORY: Reason for exam: h/o lung ca, truncal weakness. TECHNIQUE: Axial computed tomography images of the head/brain without intravenous contrast. CTDI is 36.67 mGy and DLP is 624.41 mGy-cm. Automated exposure control was utilized for the study. A dose lowering technique was utilized adhering to the principles of ALARA. COMPARISON: None. FINDINGS: Brain: Mild generalized brain atrophy. No hemorrhage. No significant white matter disease. Ventricles: Unremarkable. No ventriculomegaly. Bones/joints: Unremarkable. No acute fracture. Soft tissues: Unremarkable. Sinuses: Unremarkable as visualized. No acute sinusitis. Mastoid air cells: Unremarkable as visualized. No mastoid effusion. IMPRESSION: Involutional changes, otherwise normal CT brain. Electronically signed by: Елена Baca MD 12/30/23 21:[address] 12/30/23 18:39 Exam(s): CT C SPINE EXAM: CT Cervical Spine Without Intravenous Contrast CLINICAL HISTORY: Reason for exam: h/o lung ca, truncal weakness,. TECHNIQUE: Axial computed tomography images of the cervical spine without intravenous contrast. CTDI is 24.94 mGy and DLP is 496 mGy-cm. Automated exposure control was utilized for the study. A dose lowering technique was utilized adhering to the principles of ALARA. COMPARISON: None. FINDINGS: Vertebrae: Multilevel endplate spondylosis with mild narrowing of disc height consistent with disc degenerative disease. Degenerative arthrosis at anterior C1-C2 articulation, otherwise normal odontoid process. Diffuse osteopenia. No acute fracture. Normal cervical lordosis with normal alignment of the cervical vertebral bodies. Discs/spinal canal/neural foramina: Multilevel bilateral apophyseal hypertrophy contributing to variable degrees of neuroforaminal encroachment. Soft tissues: Unremarkable. Pleural space: Lung apices reveal biapical pleural thickening with subpleural scarring, left more than right. IMPRESSION: Degenerative disease as described with no acute fracture or subluxation. Electronically signed by: Елена Baca MD 12/30/23 21:27 PM Discharge Plan Visit Data Chief Complaint: Referred by Doctor Stated Complaint: UNABLE TO MOVE LEGS ED Provider: Fredi Nolen Discharge Problem: Weakness generalized, Ambulatory dysfunction, Transaminitis, Hypophosphatemia, Low blood magnesium, History of lung cancer Patient Disposition: Admitted As Inpatient Discharge Instructions Interventions: ED Discharge Assessment Last Done: 12/31/23 00:56
[2023-12-30] MEDS: SODIUM CHLORIDE 0.9% 500 ML IV ONE (18:48)
[2023-12-30 18:59] LABS: Magnesium 1.7 mg/dl (1.7-2.4); Phosphorus 1.7 mg/dl (2.5-4.9)
[2023-12-30 19:14] LABS: Thyroid Stimulating Hormone 0.395 uIu/ml (0.300-4.500)
[2023-12-30] MEDS: OPTIRAY 350 500ml IV ONE (20:03)
[2023-12-30 21:20] LABS: Appearance Urine Cloudy (Clear); Bacteria Urine Automated Negative (Negative); Bilirubin Urine Negative (Negative); Blood Urine 3+ (Negative); Color Urine Yellow; Epithelial Cell Urine Auto >30 /lpf (0-5); Glucose Urine UA 2+ (Negative); Ketones Urine Trace (Negative); Leukocyte Esterase Urine Trace (Negative); Nitrite Urine Negative (Negative); Protein Urine 2+ (Negative); RBC Urine Automated 0-4 /hpf (0-4); Specific Gravity Urine 1.024 (1.000-1.030); Urobilinogen Urine Negative (Negative)
--- NOTE | 2023-12-30 21:23 | CT Scan Report ---
Exam(s): CT HEAD Without Contrast EXAM: CT Head Without Intravenous Contrast CLINICAL HISTORY: Reason for exam: h/o lung ca, truncal weakness. TECHNIQUE: Axial computed tomography images of the head/brain without intravenous contrast. CTDI is 36.67 mGy and DLP is 624.41 mGy-cm. Automated exposure control was utilized for the study. A dose lowering technique was utilized adhering to the principles of ALARA. COMPARISON: None. FINDINGS: Brain: Mild generalized brain atrophy. No hemorrhage. No significant white matter disease. Ventricles: Unremarkable. No ventriculomegaly. Bones/joints: Unremarkable. No acute fracture. Soft tissues: Unremarkable. Sinuses: Unremarkable as visualized. No acute sinusitis. Mastoid air cells: Unremarkable as visualized. No mastoid effusion. IMPRESSION: Involutional changes, otherwise normal CT brain. Electronically signed by: Елена Baca MD 12/30/23 21:22 PM
--- NOTE | 2023-12-30 21:28 | CT Scan Report ---
Exam(s): CT C SPINE EXAM: CT Cervical Spine Without Intravenous Contrast CLINICAL HISTORY: Reason for exam: h/o lung ca, truncal weakness,. TECHNIQUE: Axial computed tomography images of the cervical spine without intravenous contrast. CTDI is 24.94 mGy and DLP is 496 mGy-cm. Automated exposure control was utilized for the study. A dose lowering technique was utilized adhering to the principles of ALARA. COMPARISON: None. FINDINGS: Vertebrae: Multilevel endplate spondylosis with mild narrowing of disc height consistent with disc degenerative disease. Degenerative arthrosis at anterior C1-C2 articulation, otherwise normal odontoid process. Diffuse osteopenia. No acute fracture. Normal cervical lordosis with normal alignment of the cervical vertebral bodies. Discs/spinal canal/neural foramina: Multilevel bilateral apophyseal hypertrophy contributing to variable degrees of neuroforaminal encroachment. Soft tissues: Unremarkable. Pleural space: Lung apices reveal biapical pleural thickening with subpleural scarring, left more than right. IMPRESSION: Degenerative disease as described with no acute fracture or subluxation. Electronically signed by: Елена Baca MD 12/30/23 21:27 PM
--- NOTE | 2023-12-30 21:33 | CT Scan Report ---
Exam(s): CTA CHEST IV Amt: 111ML OPTIRAY 350 EXAM: CT Angiography Chest With Intravenous Contrast CLINICAL HISTORY: Reason for exam: h/o lung ca, sob, r/o PE. TECHNIQUE: Axial computed tomographic angiography images of the chest with intravenous contrast. CTDI is 66.9 mGy and DLP is 2293.08 mGy-cm. Automated exposure control was utilized for the study. A dose lowering technique was utilized adhering to the principles of ALARA. MIP reconstructed images were created and reviewed. COMPARISON: Chest CT November 30, 2021 FINDINGS: Pulmonary arteries: No pulmonary embolism. Aorta: No acute findings. Normal caliber. No dissection. Lungs: Right upper lobe spiculated nodule measuring up to 1.5 cm (series 7 image 82). The size of the solid component has increased worrisome for progressive malignancy. A few additional areas of some solid nodularity mostly within the right lower lobe. Largest area measures 1.7 cm series 7 image 64, unchanged. The majority of the remainder of the nodular foci seen on the prior study have either resolved or near completely resolved suggesting that these are secondary to an infectious or inflammatory process as opposed to malignancy. Mild emphysematous changes. Pleural space: Unremarkable. Heart: Unremarkable. Bones/joints: No acute fracture. Soft tissues: Unremarkable. Lymph nodes: Unremarkable. IMPRESSION: 1. No pulmonary embolism. 2. Right upper lobe spiculated nodule measuring up to 1.5 cm (series 7 image 82). The size of the solid component has increased worrisome for progressive malignancy. 3. A few additional areas of subsolid nodularity mostly within the right lower lobe. Largest area measures 1.7 cm series 7 image 64, unchanged. The majority of the remainder of the nodular foci seen on the prior study have either resolved or near completely resolved suggesting that these are secondary to an infectious or inflammatory process as opposed to malignancy. Continued interval attention on follow-up. 4. Mild emphysematous changes. Electronically signed by: Robert Ndiaye MD 12/30/23 21:33 PM
--- NOTE | 2023-12-30 21:35 | CT Scan Report ---
Exam(s): CT ABDOMEN + PELVIS With Contrast IV Amt: 111ML OPTIRAY 350 EXAM: CT Abdomen and Pelvis With Intravenous Contrast CLINICAL HISTORY: Reason for exam: h/o lung ca, truncal weakness, transaminitis. TECHNIQUE: Axial computed tomography images of the abdomen and pelvis with intravenous contrast. CTDI is 66.9 mGy and DLP is 2293.08 mGy-cm. Automated exposure control was utilized for the study. A dose lowering technique was utilized adhering to the principles of ALARA. CONTRAST: Patient received 111ML OPTIRAY 350 of IV contrast COMPARISON: No relevant prior studies available. FINDINGS: ABDOMEN: Liver: Unremarkable. Gallbladder and bile ducts: Cholecystectomy. No biliary dilatation. Pancreas: Unremarkable. Spleen: Unremarkable. Adrenals: Unremarkable. Kidneys and ureters: Unremarkable. No obstructing stones. No hydronephrosis. Stomach and bowel: Unremarkable. PELVIS: Appendix: Normal appendix. Bladder: Unremarkable. Reproductive: Hysterectomy. ABDOMEN and PELVIS: Intraperitoneal space: Unremarkable. No free air. No significant fluid collection. Bones/joints: No acute fracture. Soft tissues: Unremarkable. Vasculature: Aortobiiliac atherosclerotic calcifications. Stents within the common iliac arteries and right external iliac artery. Lymph nodes: Unremarkable. IMPRESSION: No acute abnormality. Electronically signed by: Robert Ndiaye MD 12/30/23 21:34 PM
[2023-12-30 21:43] LABS: Troponin I High Sensitivity 24.2 pg/ml (0-14)
[2023-12-30 21:46] LABS: Calcium Oxalate Crystals Urine Present (None Prsent)
[2023-12-30] MEDS: MAGNESIUM SULFATE / D5W 1 GM/100 ML BAG IV STA (23:20)
[2023-12-30] MEDS: POT PHOSPHATE MONOBASIC W/ SOD TAB PO STA (23:20)
--- NOTE | 2023-12-31 00:16 | History & Physical Report ---
Date of Service December 30, 2023 Assessment & Plan (1) Bilateral leg weakness: Plan: 73yo female presenting with progressive bilateral LE weakness with difficulty ambulating and performing ADLs. Patient has had similar complaint in the past. She does have some proximal leg weakness on exam. Sensation is intact. Reflexes are difficult to elicit. Electrolyte abnormalities potentially contributing. -Admit to medical -Check ESR, CRP, CK -Maintain fall precautions -PT/OT evaluation If weakness persists after electrolyte repletion would consider MRI of the lumbar spine. No notable findings on bones/spine on CT Abdomen. Patient reports that she is severely claustrophobic and requires medication to have an MRI. (2) Elevated liver enzymes: Plan: Unclear source. Hepatocellular pattern with RZZ=305 and GPZ=522. Normal AP and Tbili. No RUQ pain with palpation. Liver appears unremarkable on CT. Patient is s/p cholecystectomy - biliary ducts appear normal. -Check acute hepatitis panel -Check Acetaminophen level and Ferritin -Hold Crestor and Zetia for now -Repeat LFTs in AM (3) Adrenal insufficiency: Plan: Noted. Patient is normotensive. Na and K are within normal range -Continue home Hydrocortisone dosing -Low threshold for stress dosing (4) Diabetes mellitus: Plan: With elevated blood sugar at present = 220. Last HgbA1C on 12/02/23=6.1. Patient is on Metformin -Hold Metformin -ISS -Goal blood sugar 110 - 140 (5) Hypercholesterolemia: Plan: Chronic -Holding Crestor and Ezetimibe (6) Hypertension: Plan: Chronic. Mildly hypertensive here -Continue Losartan and Amlodipine at home doses -Monitor BP (7) GERD (gastroesophageal reflux disease): Plan: Noted -Protonix 40mg po daily (8) Adenocarcinoma, lung: Plan: Patient completed chemotherapy. Follows with Dr. Mayes of Oncology. Last PET scan 08/09/23 with stable pulmonary nodules with no evidence of FDG avid malignancy. (Note - CTA of the chest performed today was compared with CT from November 2021 and was read as progressive disease) Patient currently remains off chemotherapy. (9) Electrolyte abnormality: Plan: Hypophosphatemia and hypomagnesemia -Repletion -Repeat labs in AM History of Present Illness Chief Complaint: bilateral LE weakness Primary Care Provider: DO Melina Cavazose Herbashley is a pleasant 73yo female with history of adenocarcinoma of the lung, peripheral vascular disease, Adrenal insufficiency, HTN, HLP and DM presenting with bilateral LE weakness. Patient reports that she has been having difficulties with her legs for years. However, over the last few weeks she has had progressive decline - worsening bilateral LE weakness and pain with standing. She states that she has to lift her legs up to change position. She has been having increased difficulty with ambulation and with ADLs such as dressing herself and bathing due to her leg weakness. She also reports becoming more short of breath with having to lift her legs. She also has ongoing lumbar back pain. She denies recent fall or trauma. No numbness or tingling in the legs. No muscle pain. No proximal shoulder pain or weakness. No concerns with bowels or bladder function. No additional complaints at this time. Additionally patient was noted to have some increasing LFTs as an outpatient. She denies EtOH use or Tylenol use. In the ER she is afebrile, HD stable and non-toxic ER Course: Potassium Phosphate 2 tabs Magnesium 1gm IV NSS x 500mL Allergies Allergy/AdvReac Type Severity Reaction Status Date / Time No Known Allergies Allergy Verified 12/30/23 19:21 Home Medications Medication Instructions Recorded Confirmed Type clopidogrel 75 mg tablet 75 mg PO DAILY 01/03/23 12/30/23 History omeprazole 40 mg capsule,delayed 40 mg PO QPM #90 caps 02/10/23 12/30/23 Rx release potassium chloride 10 mEq 20 meq PO DAILY 03/12/23 12/30/23 History tablet,extended release aspirin 81 mg tablet,delayed 81 mg PO DAILY 04/16/23 12/30/23 History release (Adult Aspirin Regimen) rosuvastatin 40 mg tablet 40 mg PO DAILY #90 tabs 06/12/23 12/30/23 Rx cholecalciferol (vitamin D3) 25 25 mcg PO DAILY #90 caps 08/07/23 12/30/23 Rx mcg (1,000 unit) capsule amlodipine 10 mg tablet (Norvasc) 5 mg (1/2 x 10 mg) PO QPM #90 tabs 08/11/23 12/30/23 Rx blood sugar diagnostic (MICR[employer] TechnologiesTouch #100 ea 09/20/23 12/17/23 Rx Verio test strips) blood-glucose meter (OneTouch #1 ea 09/20/23 12/17/23 Rx Verio Flex Meter) lancets 33 gauge (OneTouch Delica #100 ea 09/20/23 12/17/23 Rx Plus Lancet) ezetimibe 10 mg tablet (Zetia) 10 mg PO QPM #90 tabs 10/01/23 12/30/23 Rx urea 20 % topical cream 1 applic topical DAILY #85 grams 10/24/23 12/30/23 Rx ondansetron HCl 4 mg tablet 4 mg PO Q8H PRN nausea and 11/12/23 12/30/23 Rx vomiting 5 days #30 tabs hydrocortisone 5 mg tablet See Rx Instructions PO TID 12/03/23 12/30/23 History losartan 50 mg tablet 25 mg (1/2 x 50 mg) PO DAILY #30 12/17/23 12/30/23 Rx tabs metformin 500 mg tablet,extended 1,000 mg PO BID 12/17/23 12/30/23 History release 24 hr methylprednisolone 4 mg tablets in 0 mg PO HS 12/30/23 12/30/23 History a dose pack Past Med/Surg History Medical History Fatigue Vitamin D deficiency Cough productive of purulent sputum Pharyngitis Peripheral neuropathy due to chemotherapy Paresthesia of lower extremity Greater trochanteric bursitis of left hip Neurogenic claudication Chronic low back pain Depression History of COVID-19 09/2022 fatigue- no hospitalization , no current issues Peripheral vascular disease of lower extremity Adenocarcinoma, lung does chemo treatments every 3 weeks -last done 07/04/[address] Karimi due again 07/25/22 Neuropathy Thyroid nodule Lumbar radiculopathy GERD (gastroesophageal reflux disease) Anxiety Hypercholesterolemia Hypertension COPD (chronic obstructive pulmonary disease) Arthritis Heart murmur Surgical History Hx of cataract extraction rt. History of lung biopsy (08/14/21) CT Guided Percutaneous Right Upper Lobe Lung Dr. Burton Greenwood [facility] [place] History of bronchoscopy (07/17/21) EBUS with Biopsy Dr. Wolfgang Dumont S/P thyroid biopsy benign History of incisional hernia repair (08/06/19) Laparoscopic Incisional Hernia Repair with Mesh Dr. Bates History of lumpectomy of both breasts BENIGN TUMORS Hx of shoulder surgery LEFT Hx of colonoscopy 04/15/23 Hx of cardiac cath 2003 NO STENTS H/O: hysterectomy (1985) History of laparoscopic cholecystectomy Family History Mother , Passed Age 84 Cancer Hypertension Stroke Father No problems noted. Sister Cancer Uterus Brother , Passed Age 60's No problems noted. Brother , Passed Age 73 No problems noted. Daughter No problems noted. 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 How many Children do You have: 1 Feels Safe at Home: Yes Childhood Exposure to Second-Hand Smoke: Yes (step father smoked ) Diet: regular caffeine: No during the past year weight has: decreased > 10 lbs Dental Care, Regularly: No Assistive Devices: Denture - Upper, Denture - Lower and Glasses Review of Systems Review of Systems: All systems reviewed & are unremarkable except as noted in HPI & below Physical Exam Physical Exam: General: patient resting comfortably, NAD, non-toxic in appearance, AA&O x 4 Skin: warm, dry, intact, no rashes or lesions HEENT: NC/AT, PERRL, EOMI, anicteric sclera, conjunctiva without injection, external ear normal to inspection and nontender, nares patent, moist mucus membranes, dentition intact, no oropharyngeal lesions, neck supple, trachea midline, no LAD, no thyromegaly, no JVD Heart: +S1/S2, regular, no m/r/g Lungs: equal air entry bilaterally, no rales/rhonchi/wheezes Abd: +BS, soft, NT/ND, no masses/organomegaly/ascites Ext: warm, 2+ pulses in UE/LE bilaterally, no clubbing/cyanosis or edema Neuro: nonfocal, patient AA&O x 4, speech intact, no facial droop, moving all extremities on command with equal strength 5/5 Results & Data Results & Data Vital Signs (Past 12 Hours) Vital Signs Temp Pulse Pulse Resp BP BP Pulse Ox 12/30/23 22:11 72 12/30/23 22:00 167/66 H 12/30/23 22:00 71 18 97 12/30/23 21:30 71 21 97 12/30/23 21:00 72 16 98 12/30/23 20:30 75 14 98 12/30/23 20:18 78 18 99 12/30/23 20:18 167/66 H 12/30/23 20:17 79 19 12/30/23 19:30 71 24 97 12/30/23 19:00 71 23 98 12/30/23 18:30 94 H 18 97 12/30/23 18:14 72 23 98 12/30/23 18:14 73 12/30/23 18:10 72 16 189/70 H 98 12/30/23 15:37 36.6 C 80 20 175/60 H 97 O2 Del Method 12/30/23 22:11 12/30/23 22:00 12/30/23 22:00 12/30/23 21:30 12/30/23 21:00 12/30/23 20:30 12/30/23 20:18 12/30/23 20:18 12/30/23 20:17 12/30/23 19:30 12/30/23 19:00 12/30/23 18:30 12/30/23 18:14 12/30/23 18:14 12/30/23 18:10 Room Air 12/30/23 15:37 Room Air Laboratory Results Laboratory Results WBC 13.47 K/ul (4.8-10.8) H 12/30/23 15:55 RBC 4.35 M/uL (4.20-5.40) 12/30/23 15:55 Hgb 13.7 g/dl (12.0-16.0) 12/30/23 15:55 Hct 41.7 % (37.0-47.0) 12/30/23 15:55 MCV 95.9 fL (80.0-100.0) 12/30/23 15:55 MCH 31.5 pg (25.0-34.0) 12/30/23 15:55 MCHC 32.9 g/dL (32.0-36.0) 12/30/23 15:55 RDW Std Deviation 52.2 fL (36.4-46.3) H 12/30/23 15:55 RDW Coeff of Aury 14.6 % (11.5-14.5) H 12/30/23 15:55 Plt Count 284 K/uL (130-400) 12/30/23 15:55 MPV 9.3 fL (9.4-12.4) L 12/30/23 15:55 Immature Gran % (Auto) 1.4 % 12/30/23 15:55 Neut % (Auto) 86.7 % 12/30/23 15:55 Lymph % (Auto) 7.3 % 12/30/23 15:55 [place] % (Auto) 4.3 % 12/30/23 15:55 Eos % (Auto) 0.0 % 12/30/23 15:55 Baso % (Auto) 0.3 % 12/30/23 15:55 Neut # (Auto) 11.67 K/uL (1.40-6.50) H 12/30/23 15:55 Lymph # (Auto) 0.99 K/uL (1.20-3.40) L 12/30/23 15:55 [place] # (Auto) 0.58 K/uL (0.11-0.59) 12/30/23 15:55 Eos # (Auto) 0.00 K/uL (0.00-0.50) 12/30/23 15:55 Baso # (Auto) 0.04 K/uL (0.00-0.20) 12/30/23 15:55 Immature Gran # (Auto) 0.19 K/uL (0.01-0.20) 12/30/23 15:55 PT 11.9 Seconds (9.0-12.0) 12/30/23 15:55 INR 1.1 (0.9-1.1) 12/30/23 15:55 APTT 22 Seconds (21-31) 12/30/23 15:55 PTT Ratio 0.8 12/30/23 15:55 Sodium 139 mmol/L (136-145) 12/30/23 15:55 Potassium 4.4 mmol/L (3.5-5.1) 12/30/23 15:55 Chloride 108 mmol/L (98-107) H 12/30/23 15:55 Carbon Dioxide 25 mmol/L (21-32) 12/30/23 15:55 Anion Gap 6 (3-11) 12/30/23 15:55 BUN 21 mg/dl (6-23) 12/30/23 15:55 Creatinine 0.88 mg/dl (0.6-1.2) 12/30/23 15:55 Est Cr Clr Drug Dosing Not Reportable 12/30/23 15:55 Est GFR ( Amer) 74.5 ml/min 12/30/23 15:55 Est GFR (Non-Af Amer) 64.3 ml/min 12/30/23 15:55 BUN/Creatinine Ratio 23.9 (10-20) H 12/30/23 15:55 Glucose 220 mg/dl (70-99(Fasting)) H 12/30/23 15:55 Calcium 7.8 mg/dl (8.6-10.3) L 12/30/23 15:55 Phosphorus 1.7 mg/dl (2.5-4.9) L 12/30/23 15:55 Magnesium 1.7 mg/dl (1.7-2.4) 12/30/23 15:55 Total Bilirubin 0.5 mg/dl (0.2-1.0) 12/30/23 15:55 AST 552 U/L (13-39) H 12/30/23 15:55 ALT 835 U/L (7-52) H 12/30/23 15:55 Alkaline Phosphatase 100 U/L (34-104) 12/30/23 15:55 Troponin I High Sens 24.2 pg/ml (0-14) H 12/30/23 15:55 Total Protein 5.1 gm/dl (6.0-8.3) L 12/30/23 15:55 Albumin 2.9 gm/dl (3.4-5.0) L 12/30/23 15:55 Globulin 2.2 gm/dl (2.5-4.0) L 12/30/23 15:55 Albumin/Globulin Ratio 1.3 (0.9-2) 12/30/23 15:55 TSH 0.395 uIu/ml (0.300-4.500) 12/30/23 15:55 Random Cortisol 22.16 mcg/dl 12/30/23 15:55 Urine Color Yellow 12/30/23 Unknown Urine Appearance Cloudy (Clear) A 12/30/23 Unknown Urine pH 6.0 (4.5-7.5) 12/30/23 Unknown Ur Specific [place] 1.024 (1.000-1.030) 12/30/23 Unknown Urine Protein 2+ (Negative) H 12/30/23 Unknown Urine Glucose (UA) 2+ (Negative) H 12/30/23 Unknown Urine Ketones Trace (Negative) H 12/30/23 Unknown Urine Blood 3+ (Negative) H 12/30/23 Unknown Urine Nitrite Negative (Negative) 12/30/23 Unknown Urine Bilirubin Negative (Negative) 12/30/23 Unknown Urine Urobilinogen Negative (Negative) 12/30/23 Unknown Ur Leukocyte Esterase Trace (Negative) H 12/30/23 Unknown Urine WBC (Auto) 5-10 /hpf (0-5) H 12/30/23 Unknown Urine RBC (Auto) 0-4 /hpf (0-4) 12/30/23 Unknown U Hyaline Cast (Auto) 10-30 /lpf (0-5) H 12/30/23 Unknown U Epithel Cells (Auto) >30 /lpf (0-5) H 12/30/23 Unknown Urine Bacteria (Auto) Negative (Negative) 12/30/23 Unknown Ur Renal Epithelial Cell Not Reportable 12/30/23 Unknown Urine Crystals Not Reportable 12/30/23 Unknown Calcium Oxalate Crystal Present (None Prsent) A 12/30/23 Unknown Impressions Chest X-Ray 12/30/23 15:41 SINGLE VIEW CHEST CLINICAL HISTORY: Generalized weakness. FINDINGS: A PA chest radiograph is compared to study dated 07/17/2021 and correlated with chest CT dated 11/30/2021. The cardiomediastinal silhouette is unremarkable noting atherosclerotic calcification of the thoracic aorta. Emphysema and chronic interstitial thickening is similar to previous. A 13 mm irregular lesion is again seen in the right upper lobe. No airspace consolidation or pleural effusion is identified. No pneumothorax is seen. The skeletal structures are osteopenic. The bony thorax is grossly intact. Cholecystectomy clips are noted in the right upper quadrant. IMPRESSION: 1. Emphysematous change with no acute cardiopulmonary abnormality. 2. A 13 mm opacity in the right upper lobe is again noted. This remains highly suspicious for a low-grade neoplasm when correlated with the prior chest CT scan. Additional lesions seen by CT are not well-visualized by x-ray. ACT 112: Negative or not required by law. Electronically signed by: Marcello Romero M.D. 12/30/2023 4:13 PM Abdomen/Pelvis CT 12/30/23 18:37 Exam(s): CT ABDOMEN + PELVIS With Contrast IV Amt: 111ML OPTIRAY 350 EXAM: CT Abdomen and Pelvis With Intravenous Contrast CLINICAL HISTORY: Reason for exam: h/o lung ca, truncal weakness, transaminitis. TECHNIQUE: Axial computed tomography images of the abdomen and pelvis with intravenous contrast. CTDI is 66.9 mGy and DLP is 2293.08 mGy-cm. Automated exposure control was utilized for the study. A dose lowering technique was utilized adhering to the principles of ALARA. CONTRAST: Patient received 111ML OPTIRAY 350 of IV contrast COMPARISON: No relevant prior studies available. FINDINGS: ABDOMEN: Liver: Unremarkable. Gallbladder and bile ducts: Cholecystectomy. No biliary dilatation. Pancreas: Unremarkable. Spleen: Unremarkable. Adrenals: Unremarkable. Kidneys and ureters: Unremarkable. No obstructing stones. No hydronephrosis. Stomach and bowel: Unremarkable. PELVIS: Appendix: Normal appendix. Bladder: Unremarkable. Reproductive: Hysterectomy. ABDOMEN and PELVIS: Intraperitoneal space: Unremarkable. No free air. No significant fluid collection. Bones/joints: No acute fracture. Soft tissues: Unremarkable. Vasculature: Aortobiiliac atherosclerotic calcifications. Stents within the common iliac arteries and right external iliac artery. Lymph nodes: Unremarkable. IMPRESSION: No acute abnormality. Electronically signed by: Robert Ndiaye MD 12/30/23 21:34 PM Chest CTA 12/30/23 18:37 Exam(s): CTA CHEST IV Amt: 111ML OPTIRAY 350 EXAM: CT Angiography Chest With Intravenous Contrast CLINICAL HISTORY: Reason for exam: h/o lung ca, sob, r/o PE. TECHNIQUE: Axial computed tomographic angiography images of the chest with intravenous contrast. CTDI is 66.9 mGy and DLP is 2293.08 mGy-cm. Automated exposure control was utilized for the study. A dose lowering technique was utilized adhering to the principles of ALARA. MIP reconstructed images were created and reviewed. COMPARISON: Chest CT November 30, 2021 FINDINGS: Pulmonary arteries: No pulmonary embolism. Aorta: No acute findings. Normal caliber. No dissection. Lungs: Right upper lobe spiculated nodule measuring up to 1.5 cm (series 7 image 82). The size of the solid component has increased worrisome for progressive malignancy. A few additional areas of some solid nodularity mostly within the right lower lobe. Largest area measures 1.7 cm series 7 image 64, unchanged. The majority of the remainder of the nodular foci seen on the prior study have either resolved or near completely resolved suggesting that these are secondary to an infectious or inflammatory process as opposed to malignancy. Mild emphysematous changes. Pleural space: Unremarkable. Heart: Unremarkable. Bones/joints: No acute fracture. Soft tissues: Unremarkable. Lymph nodes: Unremarkable. IMPRESSION: 1. No pulmonary embolism. 2. Right upper lobe spiculated nodule measuring up to 1.5 cm (series 7 image 82). The size of the solid component has increased worrisome for progressive malignancy. 3. A few additional areas of subsolid nodularity mostly within the right lower lobe. Largest area measures 1.7 cm series 7 image 64, unchanged. The majority of the remainder of the nodular foci seen on the prior study have either resolved or near completely resolved suggesting that these are secondary to an infectious or inflammatory process as opposed to malignancy. Continued interval attention on follow-up. 4. Mild emphysematous changes. Electronically signed by: Robert Ndiaye MD 12/30/23 21:[address] 12/30/23 18:37 Exam(s): CT HEAD Without Contrast EXAM: CT Head Without Intravenous Contrast CLINICAL HISTORY: Reason for exam: h/o lung ca, truncal weakness. TECHNIQUE: Axial computed tomography images of the head/brain without intravenous contrast. CTDI is 36.67 mGy and DLP is 624.41 mGy-cm. Automated exposure control was utilized for the study. A dose lowering technique was utilized adhering to the principles of ALARA. COMPARISON: None. FINDINGS: Brain: Mild generalized brain atrophy. No hemorrhage. No significant white matter disease. Ventricles: Unremarkable. No ventriculomegaly. Bones/joints: Unremarkable. No acute fracture. Soft tissues: Unremarkable. Sinuses: Unremarkable as visualized. No acute sinusitis. Mastoid air cells: Unremarkable as visualized. No mastoid effusion. IMPRESSION: Involutional changes, otherwise normal CT brain. Electronically signed by: Елена Baca MD 12/30/23 21:[address] 12/30/23 18:39 Exam(s): CT C SPINE EXAM: CT Cervical Spine Without Intravenous Contrast CLINICAL HISTORY: Reason for exam: h/o lung ca, truncal weakness,. TECHNIQUE: Axial computed tomography images of the cervical spine without intravenous contrast. CTDI is 24.94 mGy and DLP is 496 mGy-cm. Automated exposure control was utilized for the study. A dose lowering technique was utilized adhering to the principles of ALARA. COMPARISON: None. FINDINGS: Vertebrae: Multilevel endplate spondylosis with mild narrowing of disc height consistent with disc degenerative disease. Degenerative arthrosis at anterior C1-C2 articulation, otherwise normal odontoid process. Diffuse osteopenia. No acute fracture. Normal cervical lordosis with normal alignment of the cervical vertebral bodies. Discs/spinal canal/neural foramina: Multilevel bilateral apophyseal hypertrophy contributing to variable degrees of neuroforaminal encroachment. Soft tissues: Unremarkable. Pleural space: Lung apices reveal biapical pleural thickening with subpleural scarring, left more than right. IMPRESSION: Degenerative disease as described with no acute fracture or subluxation. Electronically signed by: Елена Baca MD 12/30/23 21:27 PM ECG Additional Comments: EKG with NSR at 80bpm, no acute ischemic changes Code Status & VTE Plan VTE Prophylaxis Plan VTE Prophylaxis will be ordered: Yes PG Care Time/CCT Total # of Minutes Spent Total Time Spent with Patient: Total time spent is greater than 50% in coordination of care (as documented) at patient's floor/unit and/or counseling patient: Coding Level of Care Code 99474 INT INP/OBS CARE 3/75MIN Diagnoses Bilateral leg weakness R29.898 Elevated liver enzymes R74.8 Adrenal insufficiency E27.40 Diabetes mellitus E11.9 Diabetes mellitus type: type 2 Hypercholesterolemia E78.00 Hypertension I10 GERD (gastroesophageal reflux disease) K21.9 Adenocarcinoma, lung C34.90 Electrolyte abnormality E87.8 (4) Diabetes mellitus Diabetes mellitus type: type 2
[2023-12-31] MEDS ORDERED: GLUCOSE 40% GEL 15 GM TUBE PO PRN (00:54)
[2023-12-31] MEDS ORDERED: GLUCOSE 10 TAB/TUBE PO PRN (00:54)
[2023-12-31] MEDS ORDERED: DEXTROSE 50% 50 ML SYRINGE IV PRN (00:54)
[2023-12-31] MEDS ORDERED: SODIUM PHOSPHATE 3 MMOL/1 ML INFUSION IV STA (00:54)
[2023-12-31] MEDS ORDERED: ONDANSETRON INJ 2 MG/ML 2 ML VIAL IV PRN (00:54)
[2023-12-31] MEDS ORDERED: GLUCAGON FOR INJ 1 MG VIAL SQ PRN (00:54)
[2023-12-31] MEDS: SODIUM PHOSPHATE 9 MMOL in SODIUM CHLORIDE 0.9% 250 ML IV ONE (01:33)
[2023-12-31] MEDS: LACTATED RINGER'S 1,000 ML IV SCH (01:33)
[2023-12-31] MEDS: Patient's HEIGHT &/or WEIGHT Needed STA (01:34)
--- OUTSIDE RECORDS SUMMARY | 2023-12-31 04:33 | External Medical Summary | Summary of Care ---
Author Name Unknown Organization [facility] Address [address] [place] [address] Phone [phone] Care Team Providers Care Picture Booker Name Role Phone Minesh Ngo DO Primary Care Provider [phone] Reason for Visit * Reason Comments NEW PATIENT * Evaluate & Treat - Unlimited Visits (Within 30 days (routine)) - Authorized Specialty Diagnoses / Procedures Referred By Carlos t Referred To Contact Colon and Rectal Surgery / General Surgery Diagnoses Anal condyloma Magdaleno Flores MD [address] [place] [address] Referral ID Status Reason Start Date Expiration Date Visits Requested Visits Authorized [id number] Authorized Specialty Services Required 11/05/[phone] Encounter Details Date Type Department Care Team (Late st Contact Info) Description 12/25/2023 10:30 AM EDT Office Visit General Surgery Derek Oneil [address] [address] [place] [address] Soren Luna DO [address] [place] [address] Anal condyloma* Allergies Active Allergy Reactions Criticality Noted Date Comments Statins 08/23/2015 Patient states had nausea with them- but takes Statins now documented as of this encounter (statuses as of 12/25/2023) Medications Medication Sig Dispensed Refills Start Date End Date Status omeprazole (PRILOSEC) 40 MG CPDR Take one daily 90 Cap 1 08/07/2017 Active amLODIPine Besylate 10 MG Oral Tablet (Norvasc) Take 1 Tablet by mouth in the morning. 0 11/21/2020 Active Ezetimibe 10 MG Oral Tablet (Zetia) Take 1 Tablet by mouth in the morning. In the morning.. 0 01/22/2021 Active Ondansetron 8 MG Oral Tablet DisintegratingIndi cations:Nausea Place 1 Tab on tongue every 8 hours as needed for Nausea for up to 2 doses. dissolve on tongue. Take on tablet prior to colon prep, May repeat 8 hours after prep 2 Tab 0 02/06/2021 Active Vitamin C 100 MG Oral Tablet Take 1 Tablet by mouth in the morning. 0 Active Folic Acid 1 MG Oral Tablet TAKE ONE TABLET BY MOUTH EVERY DAY, BEGIN 1 WEEK BEFORE INITIAL PEMETREXED DOSE AND CONTINUE UNTIL THREE WEEKS PAST FINAL DOSE 0 09/10/2022 Active Dexamethasone 4 MG Oral Tablet (Decadron) 0 09/03/2022 Active Ondansetron HCl 4 MG Oral Tablet (Zofran) 0 08/24/2022 Active Aspirin EC 81 MG Oral Tablet Delayed Release Take 1 Tablet by mouth in the morning. 90 Tablet 3 11/22/2022 Active Ciprofloxacin HCl 500 MG Oral Tablet (Cipro) Take 1 Tablet by mouth in the morning and 1 Tablet before bedtime. 6 Tablet 0 04/15/2023 Active Additional Information Patient not taking.Reported on 10/29/2023 Rosuvastatin Calcium 40 MG Oral Tablet (Crestor)Indicatio ns:PAD (peripheral artery disease) (HCC) Take 1 Tablet by mouth in the morning. 30 Tablet 5 06/12/2023 Active Vitamin D3 25 MCG (1000 UT) Oral Tablet (Vitamin D3) Take 1 Tablet by mouth in the morning. 0 08/07/2023 Active Hydrocortisone 5 MG Oral Tablet (Cortef) Take 1 Tablet by mouth. 0 05/21/2023 Active MetaIntell Flex System w/Device Kit USE TO TEST BLOOD SUGAR 2 TIMES A DAY 0 09/23/2023 Active MetaIntell In Vitro Strip USE TO TEST BLOOD SUGAR 2 TIMES A DAY 0 09/20/2023 Active Categorical Delica Plus [id number] TEST BLOOD SUGAR WITH FINGERSTICKS 2 TIMES A DAY 0 09/20/2023 Active Potassium Chloride ER 20 MEQ Oral Tablet Extended Release Take 1 Tablet by mouth in the morning. 0 09/16/2023 Active metFORMIN HCl ER 500 MG Oral Tablet Extended Release 24 Hour (Glucophage XR) TAKE 1 TABLET BY MOUTH IN THE MORNING AND EVENING. IF TOLERATING AFTER 2 WEEKS, INCREASE BY 1 TABLET UNTIL TAKING 2 TABLETS IN THE MORNING A 0 09/20/2023 Active Cephalexin 500 MG Oral Capsule (Keflex) TAKE ONE CAPSULE BY MOUTH TWICE A DAY FOR 7 DAYS 0 09/23/2023 Active Metoclopramide HCl 5 MG Oral Tablet (Reglan) 30 minutes beforeprep and then 8 hours 2 Tablet 0 10/22/2023 Active Additional Information Patient not taking.Reported on 10/29/2023 Clopidogrel Bisulfate 75 MG Oral Tablet (pLAVix) Take 1 Tablet by mouth in the morning. 90 Tablet 3 10/23/2023 Active documented as of this encounter (statuses as of 12/25/2023) Active Problems Problem Noted Date Diagnosed Date Claudication in peripheral vascular disease 06/2023 Preoperative cardiovascular examination 01/09/20 18 HTN, goal below 140/90 03/20/2017 Adenomatous polyp of colon 03/20/2017 Chronic gastritis without bleeding 03/20/2017 documented as of this encounter (statuses as of 12/25/2023) Resolved Problems Problem Noted Date Diagnosed Date Resolved Date Arthralgia 03/20/2017 05/13/2017 documented as of this encounter (statuses as of 12/25/2023) Social History Tobacco Use Types Packs/Day Years Used Date Smoking Tobacco: Former Cigarettes Smokeless Tobacco: Never Tobacco Cessation:Counseling Given: No Comments:< 1 ppd as of 01/08/18 (quit 19 months ago) Alcohol Use Standard Drinks/Week Comments No 0 (1 standard drink = 0.6 oz pur e alcohol) PHQ-2 Answer Date Recorded PHQ-2 Score -1 08/13/2018 Sex and Gender Information Value Date Recorded Sex Assigned at Female 09/15/2023 8:28 AM EST Gender Identity Female 09/15/2023 8:28 AM EST Sexual Orientation Straight 09/15/2023 8: 28 AM EST Job Start Date Occupation Industry Not on file Not on file Not on file documented as of this encounter Last Filed Vital Signs Vital Sign Reading Time Taken Comments Blood Pressure 134/64 12/25/2023 10:33 AM EDT Pulse 100 12/25/2023 10:33 AM EDT Temperature 36.9 C (98.4 F) 12/25/2023 10:33 AM E DT Respiratory Rate - - Oxygen Saturation - - Inhaled Oxygen Concentration - - Weight 80.7 kg (178 lb) 12/25/2023 10:33 AM EDT Height - - Body Mass Index 29.62 10/22/2023 8:40 AM EST documented in this encounter Functional Status Functional Status Response Date of Assess ment Are you deaf or do you have serious difficulty h earing? No 12/31/2022 Are you blind or do you have serious difficulty seeing, even when wearing glasses? No 12/31/2022 Do you have serious difficul ty walking or climbing stairs? (5 years old or older) No 12/31/2022 Do you have difficulty dress ing or bathing? (5 years old or older) No 12/31/2022 Because of a physical, menta l, or emotional condition, do you have difficulty doing errands alone such as visiting a doctor s office or shopping? (15 years old or older) No 01/01/20 23 Cognitive Status Response Date of Assessm ent Because of a physical, menta l, or emotional condition, do you have serious difficulty concentrating, remembering, or making decisions? (5 years old or older) No 12/31/2022 documented as of this encounter Progress Notes * Salena Fernández, Medical Student - 12/25/2023 10:40 AM EDT Unless the attending has added an attestation supporting use of this note to document a billable service, the signature of the Licensed Professional on this note only acknowledges the presence of thestudent's note within the patient record and the Licensed Professional's note should be referred tofor clinical information and recommendations. COLORECTAL SURGERY HISTORY AND PHYSICAL [facility] DATE: 12/25/23 Referring Physician: 1. Minesh Ngo DO Primary Care Physician: Minesh Ngo, DO HISTORY OF PRESENT ILLNESS: Sophie Myers is a 73 year old female who presents for evaluation of condyloma acuminatum with low-grade squamous dysplasia on recent colonoscopy. Patient denies rectal pain, hematochezia, nausea, vomiting, diarrhea, fever, chills, weight loss, chest pain or shortness of breath. Past medical history includes HTN, COPD, PVD, lung cancer with completion of chemotherapy February 2023. She endorses history of cholecystectomy, hysterectomy, hernia repair in remote past. Colonoscopy 10/29/2023: Findings & Specimens: The perianal and digital rectal examinations were normal. Multiple small and large-mouthed diverticula were found in the sigmoid colon and descending colon. Seven sessile polyps were found in the descending colon, transverse colon and ascending colon. The polyps were 2 to 5 mm in size. These polyps were removed with a cold snare. Resection and retrieval were complete. Ascending colon scar without polyp recurrence. Transverse colon polyp tattoo with recurrence. A 12 mm polyp was found in the splenic flexure. The polyp was sessile. The polyp was removed with a saline injection-lift technique using a hot snare and tip-in EMR technique. Resection and retrieval were complete. There was brisk oozing post removal. Polypectomy closed with 3 clips with hemostasis. There was a 20 mm polypoid lesion that may be condyloma or polyp at the dentate line. This was first biopsied, then injected with saline and 1:100,000 epinephrine and 5 cc's of 2% lidocaine, and removed completely in two pieces using an underwater EMR technique. Soft coag applied to base and edges using hot biopsy forceps. Note for part D and E: Tissue section reveals fragments of condyloma acuminatum. VINAYAK HPV study performed on tissu section D1 and E2 is positive for low risk HPV and negative for high-risk HPV. 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 Colon, polyps, polypectomy: Tubular adenomas. B. Colon, Transverse, polyp, polypectomy: Tubular adenoma. C. Colon, splenic flexure polyp, polypectomy: Scant superficial columnar epithelium admixed with mucoid material, insufficient for further evaluation. Additional levels examined. D. Anus, biopsy: Condyloma acuminatum, with low-grade squamous dysplasia. E. Anus polyp, polypectomy: Condyloma acuminatum with low-grade squamous dysplasia. See note. Additional hyperplastic rectal mucosa. REVIEW OF SYSTEMS: CONSTITUTIONAL: No change in weight No fevers, sweats, or chills CV: pt denies:, chest pain, SOB GI: pt denies:, abdominal pain, nausea, blood in stool or black stools, constipation or change in bowel habits, diarrhea : dysuria hematuria ALL OTHER SYSTEMS REVIEWED AND ARE NEGATIVE IN DETAIL PAST MEDICAL HISTORY: Past Medical History: Diagnosis Date Anxiety Arthritis COPD (chronic obstructive pulmonary disease) ([facility]) Dry eyes GERD (gastroesophageal reflux disease) Lumbar stenosis Lung cancer ([facility]) 2020 Neuropathy Personal history of colonic polyps 08/11/2014 several adenomatous and hyperplastic polyps PVD (peripheral vascular disease) ([facility]) MEDICATIONS: Outpatient Medications Marked as Taking for the 12/25/23 encounter (Office Visit) with Soren Luna DO Medication Sig Clopidogrel Bisulfate 75 MG Oral Tablet (pLAVix) Take 1 Tablet by mouth in the morning. metFORMIN HCl ER 500 MG Oral Tablet Extended Release 24 Hour (Glucophage XR) TAKE 1 TABLET BY MOUTHIN THE MORNING AND EVENING. IF TOLERATING AFTER 2 WEEKS, INCREASE BY 1 TABLET UNTIL TAKING 2 TABLETS IN THE MORNING A Categorical Delica Plus [id number] TEST BLOOD SUGAR WITH FINGERSTICKS 2 TIMES A DAY Categorical Verio Flex System w/Device Kit USE TO TEST BLOOD SUGAR 2 TIMES A DAY Categorical Verio In Vitro Strip USE TO TEST BLOOD SUGAR 2 TIMES A DAY Potassium Chloride ER 20 MEQ Oral Tablet Extended Release Take 1 Tablet by mouth in the morning. Hydrocortisone 5 MG Oral Tablet (Cortef) Take 1 Tablet by mouth. Vitamin D3 25 MCG (1000 UT) Oral Tablet (Vitamin D3) Take 1 Tablet by mouth in the morning. Rosuvastatin Calcium 40 MG Oral Tablet (Crestor) Take 1 Tablet by mouth in the morning. Aspirin EC 81 MG Oral Tablet Delayed Release Take 1 Tablet by mouth in the morning. Dexamethasone 4 MG Oral Tablet (Decadron) Ondansetron HCl 4 MG Oral Tablet (Zofran) Ondansetron 8 MG Oral Tablet Disintegrating Place 1 Tab on tongue every 8 hours as needed for Nausea for up to 2 doses. dissolve on tongue. Take on tablet prior to colon prep, May repeat 8 hours after prep amLODIPine Besylate 10 MG Oral Tablet (Norvasc) Take 1 Tablet by mouth in the morning. Ezetimibe 10 MG Oral Tablet (Zetia) Take 1 Tablet by mouth in the morning. In the morning.. omeprazole (PRILOSEC) 40 MG CPDR Take one daily ALLERGIES TO MEDICATIONS: Review of patient's allergies indicates: Review of patient's allergies indicates: Allergen Reactions Statins Patient states had nausea with them- but takes Statins now PAST SURGICAL HISTORY: Past Surgical History: Procedure Laterality Date BREAST BIOPSY Bilateral 1971 benign COLONOSCOPY, DIAGNOSTIC (RECTUM) 08/11/2014 several adenomatous and hyperplastic polyps. repeat in 3 yrs/COLONOSCOPY FLEXIBLE PROXIMAL DIAGNOSTIC performed by Vaughn Greer DO at [facility] COLONOSCOPY, DIAGNOSTIC (RECTUM) N/A 10/23/2017 adenomatous and hyperplastic polyps/recall 1 year/COLONOSCOPY FLEXIBLE PROXIMAL DIAGNOSTIC performed by Vaughn Greer DO at ENDOSCOPY [facility] COLONOSCOPY, DIAGNOSTIC (RECTUM) N/A 12/19/2018 tattoo seen in transverse colon/benign adenomatous polyps/recall 2 years/Colonoscopy COLONOSCOPY, DIAGNOSTIC (RECTUM) N/A 12/19/2018 COLONOSCOPY FLEXIBLE PROXIMAL DIAGNOSTIC performed by Yani De Leon MD at ENDOSCOPY [facility] COLONOSCOPY, DIAGNOSTIC (RECTUM) N/A 02/17/2021 biopsies show adenomatous polyps/recall 1 year/COLONOSCOPY FLEXIBLE PROXIMAL DIAGNOSTIC performed by Yani De Leon MD at ENDOSCOPY [facility] COLONOSCOPY, DIAGNOSTIC (RECTUM) N/A 08/09/2022 hemorrhoids/28 colon polyps found/biopsies show adenomatous polyps/recall 3 months/Colonoscopy COLONOSCOPY, DIAGNOSTIC (RECTUM) N/A 08/29/2022 multiple small and large mouthed diverticula in sigmoid and descending colon/hemorrhoids/biopsies show adenomatous polyps/recall 6 months/COLONOSCOPY FLEXIBLE PROXIMAL DIAGNOSTIC performed by Magdaleno Flores MD at ENDOSCOPY [facility] COLONOSCOPY, DIAGNOSTIC (RECTUM) N/A 08/09/2022 COLONOSCOPY FLEXIBLE PROXIMAL DIAGNOSTIC performed by Magdaleno Flores MD at [facility] COLONOSCOPY, DIAGNOSTIC (RECTUM) 04/15/2023 multiple polyps/biopsies show tubulovillous adenoma/recall 6 months/COLONOSCOPY FLEXIBLE PROXIMAL DIAGNOSTIC performed by Magdaleno Flores MD at ENDOSCOPY [facility] COLONOSCOPY, DIAGNOSTIC (RECTUM) N/A 10/29/2023 mulitple small and large mouthed diverticula sigmoid and descending colon/biopsies show adenomatouspolyps/recall 6-9 months/COLONOSCOPY FLEXIBLE PROXIMAL DIAGNOSTIC performed by Kylie Flores MD at [facility]COPY [facility] EGD, FLEXIBLE, DIAGNOSTIC N/A 08/29/2022 normal/ESOPHAGOGASTRODUODENOSCOPY (EGD), FLEXIBLE, TRANSORAL, DIAGNOSTIC performed by Magdaleno Flores MD at [facility] ILIAC ART REVASC W/ STENT,ADDL IPSILATERAL Right 12/31/2022 ILIAC ART REVASC W/ STENT,ADDL IPSILATERAL performed [place] Mo [place]cal[place] [facility] [place]IAC ART. REVASC W/ STENT+ANGIOPLASTY Bilateral 12/31/2022 ILIAC ARTERY REVASC W/ STENT+ANGIOPLASTY performed by Mo Alcala MD [place] [facility] INFORMATION 11/2011 blepharopigmentation (Moonlight Tattoo) IR ARTERIOGRAM EXTREMITY BILATERAL Bilateral 12/31/2022 ANGIOGRAPHY EXTREMITY BILATERAL performed by Mo Alcala MD [place] [facility] IR BIOPSY 08/14/2021 PARTIAL HYSTERECTOMY 1986 THROMBECTOMY, PERC PRIMARY ARTERIAL MECHANICAL, INIT Right 12/31/2022 MECHANICAL THROMBECTOMY, ARTERIAL OR ARTERIAL BYPASS GRAFT, INITIAL VESSEL performed by Mo Alcala MD [place] [facility] FAMILY HISTORY: Family History Problem Relation Age of Onset No Known Problems Other view genetics visit note from 11/06/2022 for updated phx and famhx SOCIAL HISTORY: Social History Socioeconomic History Marital status: Spouse name: Not on file Number of children: Not on file Years of education: Not on file Highest education level: Not on file Occupational History Not on file Tobacco Use Smoking status: Former Current packs/day: 0.75 Types: Cigarettes Smokeless tobacco: Never Tobacco comments: < 1 ppd as of 01/08/18 (quit 19 months ago) Vaping Use Vaping Use: Never used Substance and Sexual Activity Alcohol use: No Drug use: No Sexual activity: Not on file Other Topics Concern Not on file Social History Narrative Not on file Social Determinants of Health Financial Resource Strain: Not on file Food Insecurity: Not on file Transportation Needs: Not on file Physical Activity: Not on file Stress: Not on file Social Connections: Not on file Intimate Partner Violence: Not on file Housing Stability: Not on file PHYSICAL EXAMINATION: BP 134/64 | Pulse 100 | Temp 36.9 C (98.4 F) (Temporal Artery) | Wt 80.7 kg (178 lb) | BMI 29.62 kg/m | BSA 1.92 m Constitutional: well nourished, well developed, no acute distress Neck: Supple, full ROM CV: normal rate, normal rhythm Chest: normal respiratory effort Ext: no edema Skin: complete exam not performed, but no obvious gross lesions Neuro: alert, oriented to person, place, and time, motor and sensation grossly intact Rectal Exam: External: no erythema, lesions noted KEELEY: normal rectal tone, no blood Procedure: Anoscopy (performed by Dr. Luna): no condylomas visualized IMPRESSION and PLAN: 1) Sophie Myers is a 73 year old female who presents for evaluation of condyloma acuminatum with low-grade squamous dysplasia on recent colonoscopy. - f/u in office for repeat anoscopy every 3-[address] Luna. Salena Fernández, Medical Student 12/25/23 I attest that I have reviewed the student note and that the components of the history, the physicalexam, and the assessment and plan documented were performed in my presence with the student where Iverified the documentation and performed (or re-performed) the exam and medical decision making. Patient is a 73-year-old female with a history of a recent colonoscopy. She was found to have a lesion in her distal rectum. Pathology came back as condyloma. It was low grade squamous intraepithelial lesion. It was completely excised. On exam today, the patient had no lesions in the external area.On the digital rectal exam we were not able to feel any abnormal lesions. On anoscopy performed by me, there were no evidence of abnormal anal canal or distal rectal lesions. 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 We will continue to follow q.3 months for a year as long as she has no additional lesions. If she has any additional lesions, she will need resection secondary to the fact it is in the anal canal. Patient agreed with the plan as stated. We will see her back in 3 months. documented in this encounter Nursing Notes * Gisela Dean CMA - 12/25/2023 10:30 AM EDT Chief Complaint Patient presents with NEW PATIENT Patient accompanied by spouse. Patient states that she had colonoscopy (10/29/23) and they found a "wart". Patient here to follow up on that. Patient denies rectal pain. documented in this encounter Plan of Treatment Upcoming Encounters Date Type Department Care Team (Late st Contact Info) Description 12/26/2023 10:50 AM EDT Office Visit Vascular Surgery, [place] [address] [place] [address] Mo Alcala MD [address] [place], [place] [id number] 12/31/2023 9:15 AM EDT Imaging Radiology, [place] [address] [place] [id number] 01/06/2024 10:15 AM EDT Hospital Encounter Radiology, [facility] [address] [place] [address] 03/18/2024 11:00 AM EDT Office Visit General Surgery [facility] [address] [facility] [address] [place] [address] Soren Luna DO [address] [place] [address] 05/14/2024 8:00 AM EDT Hospital Encounter ENDO [facility], Endoscopy [address] [facility] [address] [place] [address] Magdaleno Flores MD [address] [facility] [place] [address] 05/14/2024 8:00 AM EDT - 05/14/2024 9:00 AM EDT Surgery ENDO [facility], Endoscopy [address] [place] [address] Magdaleno Flores MD [address] [place] [address] COLONOSCOPY FLEXIBLE PROXIMAL DIAGNOSTIC Scheduled Procedures Name Priority Associated Diagnoses Date/Ti me COLONOSCOPY FLEXIBLE PROXIMAL DIAGNOSTIC History of colonic polyps 05/14/2024 8:00 AM EDT Scheduled Referrals Name Type Priority Associated Diagnoses Orde r Schedule COLORECTAL SURGERY REFERRAL OP Referral Within 30 days (routine) Anal condyloma Ordered: 11/05/2023 Health Maintenance Due Date Last Done Comments Albumin/Creatinine Ratio 01/17/1966 Hepatitis C Screening 01/17/1966 DTaP,Tdap,and Td Vaccines (1 - Tdap) 01/17/1967 Zoster Vaccines (1 of 2) 01/17/1998 Pneumococcal Vaccine: 65+ Years (1 of 1 - PCV) 01/17/2013 Depression Screening 09/03/2018 09/03/2017 DXA Scan 05/16/2020 05/16/2017 COVID-19 Vaccine ( - 2022-24 season) 2023 Influenza Vaccine (FLU shot) (#1) 2023 06/25/2017 (Declined) GFR 03/05/2024 03/05/2023, 12/06, 12/25/2022, Additional history exists COLONOSCOPY-ANNUAL AGES 18-100 10/29/2024 10/29/2023, 10/29/2023, 04/15/2023, Additional history exists COLONOSCOPY-EVERY 2 YRS AGES 18-100 Discontinued 10/29/2023, 10/29/2023, 04/15/2023, Additional history exists GARDASIL-HPV IMMUNIZATION SERIES Aged Out No longer eligible based on patient's age to complete this topic Hepatitis B Aged Out No longer eligi ble based on patient's age to complete this topic MENINGOCOCCAL (MENACTRA/MENVEO) Aged Out No longer eligible based on patient's age to complete this topic documented as of this encounter Medical Devices Implanted Type Area Cook Enchilada Device Identifier Shelf Expiration Date Model / Serial / Lot Duraclip 16mm Xlg Repostn - [id number] Implanted:Qty: 1 on 08/09/2022 by Magdaleno Flores MD at [facility]OSCOPY [facility] N/A: Colon CONMED IVETTE [id number] 04/07/2024 [id number] / / [id number] Description:colon Duraclip 16mm Xlg Repostn - [id number] Implanted:Qty: 2 on 08/09/2022 by Magdaleno Flores MD at ENDOSCOPY [facility] N/A: Colon CONMED IVETTE [id number] 04/07/2024 [id number] / / [id number] Description:colon Clip Quick 2.8mm 230cm - [id number] Implanted:Qty: 3 on 08/09/2022 by Magdaleno Flores MD at ENDOSCOPY [facility] N/A: Colon Yoke [id number] 08/06/2024 [id number] / / [id number] Description:colon Duraclip 16mm Xlg Repostn - [id number] Implanted:Qty: 1 on 08/29/2022 by Mgadaleno Flores MD at ENDOSCOPY [facility] N/A: Colon CONMED IVETTE [id number] 12/05/2024 [id number] / / [id number] Cath Viabahnbx [id number] - [id number] Implanted:Qty: 1 on 12/31/2022 by Mo Alcala MD at [facility] Left: Iliac [employer] [id number] 09/12/2025 [id number] / [id number] / [id number] Cath Viabahnbx [id number] - [id number] - [id number] Implanted:Qty: 1 on 12/31/2022 by Mo Alcala MD at [facility] Right: Iliac [employer] [id number] 07/28/2025 [id number] / [id number] / [id number] Stent Innova 8 X 60 X130 - [id number] Implanted:Qty: 1 on 12/31/2022 by Mo Alcala MD at [facility] [employer] : PERIPHL [place] [id number] 07/03/2027 [id number] / / [id number] Duraclip 16mm Xlg Repostn - [id number] Implanted:Qty: 1 on 04/15/2023 by Magdaleno Flores MD at ENDOSCOPY [facility] Colon CONMED [facility] [id number] 01/17/2024 [id number] 5W / / [id number] Duraclip 16mm Xlg Repostn - [id number] Implanted:Qty: 1 on 04/15/2023 [facility] [id number] 04/08/2024 [id number] 5W / / [id number] Duraclip 16mm Xlg Repostn - [id number] Implanted:Qty: 1 on 04/15/2023 by Magdaleno Flores MD at [facility] [id number] 01/17/2024 [id number] 5W / / [id number] Hemostasis [id number] 2.8mm Clip Sheath Repositionable - [id number] Implanted:Qty: 1 on 10/29/2023 by Magdaleno Flores MD at ENDOSCOPY [facility] [id number] 08/06/2024 [id number] 5W / / [id number] Hemostasis [id number] 2.8mm Clip Sheath Repositionable - [id number] Implanted:Qty: 1 on 10/29/2023 by Magdaleno Flores MD at ENDOSCOPY [facility] [id number] 08/06/2024 DC023 5W / / [id number] Hemostasis [id number] 2.8mm Clip Sheath Repositionable - [id number] Implanted:Qty: 1 on 10/29/2023 by Magdaleno Flores MD at ENDOSCOPY [facility] [id number] 08/06/2024 DC023 5W / / [id number] documented as of this encounter Visit Diagnoses Diagnosis Anal condyloma- Primary Condyloma acuminatum PAD (peripheral artery disease) (HCC)- Primary Peripheral vascular disease, unspecified Dyslipidemia, goal LDL below 100 Other and unspecified hyperlipidemia History of colonic polyps Personal history of colonic polyps documented in this encounter Care Teams Picture Booker Relationship Specialty Start Date End Date Minesh Ngo DO [address] [place] [address] PCP - General Family Medicine 10/22/17 documented as of this encounter
--- OUTSIDE RECORDS SUMMARY | 2023-12-31 04:33 | External Medical Summary | Summary of Care ---
Author Name Unknown Organization [facility] Address [address] [place] [address] Phone [phone] Care Team Providers Care Microfilmer Name Role Phone Minesh Ngo DO Primary Care Provider [phone] Reason for Referral * Precert (Within 10 days (routine)) - Authorized Specialty Diagnoses / Procedures Referred By Carlos strong Referred To Contact Radiology Diagnoses Malignant neoplasm of bronchus and lung (HCC) Dizziness and giddiness Procedures MRI BRAIN W WO CONTRAST Minesh Ngo DO [address] [place] [address] Referral ID Status Reason Start Date Expiration Date V isits Requested Visits Authorized [id number] Authorized 01/23/2024 [id number] Encounter Details Date Type Department Care Team (Late st Contact Info) Description 12/23/2023 Orders Only Access Center, [address] Ext *DO NOT REMOVE THIS DEPARTMENT* [place] [id number] Requisition, External Radiology [address] [place] [address] Malignant neoplasm of bronchus and lung (HCC)*; Dizziness and giddiness Allergies Active Allergy Reactions Criticality Noted Date Comments Statins 08/23/2015 Patient states had nausea with them- but takes Statins now documented as of this encounter (statuses as of 12/23/2023) Medications Medication Sig Dispensed Refills Start Date [...] 1 Tablet by mouth. 0 05/21/2023 Active [email or web address] Verio Flex System w/Device Kit USE TO TEST BLOOD SUGAR 2 TIMES A DAY 0 09/23/2023 Active [employer]Dem[employer] In Vitro Strip USE TO TEST BLOOD SUGAR 2 TIMES A DAY 0 09/20/2023 Active OneTouch Delica Plus Aujfsq47P TEST BLOOD SUGAR WITH FINGERSTICKS 2 TIMES [...] as of this encounter (statuses as of 12/23/2023) Active Problems Problem Noted Date Diagnosed Date Claudication in peripheral vascular disease 06/2023 Preoperative cardiovascular examination 01/09/20 18 HTN, goal below 140/90 03/20/2017 Adenomatous polyp of colon 03/20/2017 Chronic gastritis without bleeding 03/20/2017 documented as of this encounter (statuses as of 12/23/2023) Resolved Problems Problem Noted Date Diagnosed Date Resolved Date Arthralgia 03/20/2017 05/13/2017 documented as of this encounter (statuses as of 12/23/2023) Social History Tobacco Use Types Packs/Day Years Used Date Smoking Tobacco: Former Cigarettes Smokeless Tobacco: Never Comments:< 1 ppd as of 8 (quit 19 months ago) Alcohol Use Standard [...] on file documented as of this encounter Functional Status Functional Status Response [...] (15 years old or older) No 01/01/20 Cognitive Status Response Date of Assessm ent Because of a physical, menta l, or emotional condition, do you have serious difficulty concentrating, remembering, or making decisions? (5 years old or older) No 12/31/2022 documented as of this encounter Plan of Treatment Upcoming Encounters Date Type Department Care Team (Late st Contact Info) Description 12/25/2023 10:30 AM EDT Office Visit General Surgery [facility] [place] [facility] [address] [place] [address] Soren Luna, [address] [facility] [place] [id number] 12/26/2023 10:50 AM EDT Office Visit Vascular Surgery, [address] [place] [address] Mo Alcala MD [address] [place] [address] 12/31/2023 9:15 AM EDT Imaging Radiology, [place] [address] [place] [address] 01/06/2024 10:15 AM EDT Appointment Radiology, [address] [place] [phone] 05/14/2024 8:00 AM EDT Hospital Encounter ENDO [facility], Endoscopy [facility] [address] [place] [address] Magdaleno Flores MD [address] [place] [address] 05/14/2024 8:00 AM EDT - 05/14/2024 9:00 AM EDT Surgery ENDO GE, Endoscopy [facility] [address] [place] [address] Magdaleno Flores MD [address] [place] [address] COLONOSCOPY [facility]AL [facility] Scheduled Orders Name Type Priority Associated Diagnoses Orde r Schedule MRI BRAIN W WO CONTRAST Medical Imaging Routine Malignant neoplasm of bronchus and lung (HCC) Dizziness and giddiness Expected: 01/23/2024, Expires: 01/22/2025 Scheduled Procedures Name Priority Associated Diagnoses Date/Ti me COLONOSCOPY FLEXIBLE PROXIMAL DIAGNOSTIC History of colonic polyps 05/14/2024 8:00 AM EDT Health Maintenance Due Date Last Done Comments Albumin/Creatinine Ratio 01/17/1966 Hepatitis C Screening 01/17/1966 DTaP,Tdap,and Td Vaccines (1 - Tdap) 01/17/1967 Zoster Vaccines (1 of 2) 01/17/1998 Pneumococcal Vaccine: 65+ Years (1 of 1 - PCV) 01/17/2013 Depression Screening 09/03/2018 09/03/2017 DXA Scan 05/16/2020 05/16/2017 COVID-19 Vaccine (1 - 2022-24 season) 2023 Influenza Vaccine (FLU shot) (#1) 2023 06/25/2017 (Declined) GFR 03/05/2024 03/05/2023, /05/2023, 12/25/2022, Additional history exists COLONOSCOPY-ANNUAL AGES 18-100 [...] this encounter Medical Devices Implanted Type Area Monitor Car Operator Device Identifier Shelf Expiration Date Model / Serial / Lot Duraclip 16mm Xlg Repostn - [id number] Implanted:Qty: 1 on 08/09/2022 by Magdaleno Flores MD at ENDOSCOPY [facility] N/A: Colon CONMED IVETTE [id number] 04/07/2024 [id number] / / [id number] Description:colon Duraclip 16mm Xlg Repostn - [id number] Implanted:Qty: 2 on 08/09/2022 by Magdaleno Flores MD at ENDOSCOPY [facility] N/A: Colon CONMED IVETTE [id number] 04/07/2024 [id number] / / [id number] Description:colon Clip Quick 2.8mm 230cm - [id number] Implanted:Qty: 3 on 08/09/2022 by Magdaleno Flores MD at [facility]OSCOPY [facility] N/A: Colon [employer] [id number] 08/06/2024 HX-202. A / / [id number] Description:colon Duraclip 16mm Xlg Repostn - [id number] Implanted:Qty: 1 on 08/29/2022 by Magdaleno Flores MD at ENDOSCOPY [facility] N/A: Colon CONMED IVETTE [id number] 12/05/2024 [id number] / / [id number] Cath Viabahnbx 2f16tte069wo - [id number] Implanted:Qty: 1 on 12/31/2022 by Mo Alcala MD at [facility] Left: Iliac [employer] [id number] 09/12/2025 [id number] / [id number] / [id number] Cath Viabahnbx 4a55niu466xq - [id number] - [id number] Implanted:Qty: 1 on 12/31/2022 by Mo Alcala MD at [facility] [place] Right: Iliac [employer] [id number] 07/28/2025 [id number] / [id number] / [id number] Stent Innova 8 X 60 X130 - [id number] Implanted:Qty: 1 on 12/31/2022 by Mo Alcala MD at [facility] [place] [employer] : PERIPHL [place] [id number] 07/03/2027 [id number] / / [id number] Duraclip 16mm Xlg Repostn - [id number] Implanted:Qty: 1 on 04/15/2023 by Mag[facility] [id number] 01/17/2024 DC023 5W / / [id number] 2 Duraclip 16mm Xlg Repostn - [id number] Implanted:Qty: 1 on 04/15/2023 by Magdaleno Flores MD at ENDOSCOPY [facility] [id number] 04/08/2024 DC023 5W / / [id number] 2 Duraclip 16mm Xlg Repostn - [id number] Implanted:Qty: 1 on 04/15/2023 by Magdaleno Flores MD at ENDOSCOPY [facility] [id number] 01/17/2024 DC023 5W / / [id number] Hemostasis [id number] 2.8mm Clip Sheath Repositionable - [id number] Implanted:Qty: 1 on 10/29/2023 by Magdaleno Flores MD at [facility] [id number] 08/06/2024 DC023 5W / / [id number] Hemostasis [id number] 2.8mm Clip Sheath Repositionable - [id number] Implanted:Qty: 1 on 10/29/2023 by Magdaleno Flores MD at ENDOSCOPY [facility] [id number] 08/06/2024 DC023 5W / / [id number] Hemostasis [id number] 2.8mm Clip Sheath Repositionable - [id number] Implanted:Qty: 1 on 10/29/2023 by Magdaleno Flores MD at ENDOSCOPY [facility] Exavio IVETTE [id number] 08/06/2024 DC023 5W / / [id number] documented as of this encounter Visit Diagnoses Diagnosis Malignant neoplasm of bronchus and lung (HCC)- Primary Malignant neoplasm of bronchus and lung, unspecified site Dizziness and giddiness PAD (peripheral artery disease) (HCC)- Primary Peripheral vascular disease, unspecified Dyslipidemia, goal LDL below 100 Other and unspecified hyperlipidemia History of colonic polyps Personal history of colonic polyps documented in this encounter Care Teams Microfilmer Relationship Specialty Start Date End Date Minesh Ngo DO [address] [place] [address] PCP - General Family Medicine 10/22/17 documented as of this encounter
--- OUTSIDE RECORDS SUMMARY | 2023-12-31 04:33 | External Medical Summary | Summary of Care ---
Author Name Unknown Organization [facility] Address [address] [place] [address] Phone [phone] Care Team Providers Care Mathematics Technician Name Role Phone Minesh Ngo DO Primary Care Provider [phone] Encounter Details Date Type Department Care Team (Latest Contact Info) Description 12/19/2023 8:55 AM EDT - 12/19/2023 9:03 AM EDT Hospital Encounter Vascular Lab, [address] [address] Arrived Discharge Disposition: Home - Self Care Allergies Active Allergy Reactions Criticality Noted Date Comments Statins 08/23/2015 Patient states had nausea with them- but takes Statins now documented as of this encounter (statuses as of 12/20/2023) Medications Medication Sig Dispensed Refills Start Date [...] 1 Tablet by mouth. 0 05/21/2023 Active [employer] Flex System w/Device Kit USE TO TEST BLOOD SUGAR 2 TIMES A DAY 0 09/23/2023 Active [employer]St[employer] Software In Vitro Strip USE TO TEST BLOOD SUGAR 2 TIMES A DAY 0 09/20/2023 Active [employer] Delica Plus Icftvg31Y TEST BLOOD SUGAR WITH FINGERSTICKS 2 TIMES [...] as of this encounter (statuses as of 12/20/2023) Active Problems Problem Noted Date Diagnosed Date Claudication in peripheral vascular disease 06/2023 Preoperative cardiovascular examination 01/09/20 18 HTN, goal below 140/90 03/20/2017 Adenomatous polyp of colon 03/20/2017 Chronic gastritis without bleeding 03/20/2017 documented as of this encounter (statuses as of 12/20/2023) Resolved Problems Problem Noted Date Diagnosed Date Resolved Date Arthralgia 03/20/2017 05/13/2017 documented as of this encounter (statuses as of 12/20/2023) Social History Tobacco Use Types Packs/Day Years [...] 10:30 AM EDT Office Visit General Surgery [place] [address] [place] [address] Soren Luna DO [address] [place] [address] 12/26/2023 10:50 AM EDT Office Visit Vascular Surgery, [place] [address] [facility] [place] [id number] Mo Alcala MD [address] [place], [place] [id number] 12/31/2023 9:15 AM EDT Imaging Radiology, [place] [address] [place] [id number] 05/14/2024 8:00 AM EDT Hospital Encounter ENDO [facility], Endoscopy [address] [phone] Magdaleno Flores MD [address] [place] [address] 05/14/2024 8:00 AM EDT - 05/14/2024 9:00 AM EDT Surgery ENDO [facility], Endoscopy [address] [phone] Magdaleno Flores MD [address] [place] [address] COLONOSCOPY FLEXIBLE PROXIMAL DIAGNOSTIC Scheduled Procedures Name [...] this encounter Medical Devices Implanted Type Area Tableau Lead Device Identifier Shelf Expiration Date Model / Serial / Lot Duraclip 16mm Xlg Repostn - [id number] Implanted:Qty: 1 on 08/09/2022 by Magdaleno Flores MD at ENDOSCOPY [facility] N/A: Colon CONMED IVETTE [id number] 04/07/2024 [id number] / / [id number] Description:colon Duraclip 16mm Xlg Repostn - [id number] Implanted:Qty: 2 on 08/09/2022 by Magdaleno Flores MD at ENDOSCOPY [facility] N/A: Colon CONMED IVETTE [id number] 04/07/2024 [id number] / / [id number] Description:colon Clip Quick 2.8mm 230cm - [id number] Implanted:Qty: 3 on 08/09/2022 by Magdaleno Flores MD at ENDOSCOPY [facility] N/A: Colon [employer] [id number] 08/06/2024 HX-202. A / / [id number] Description:colon Duraclip 16mm Xlg Repostn - [id number] Implanted:Qty: 1 on 08/29/2022 by Magdaleno Flores MD at ENDOSCOPY [facility] N/A: Colon CONMED IVETTE [id number] 12/05/2024 CD2926P / / [id number] Cath Viabahnbx 5d05vbs810nr - [id number] Implanted:Qty: 1 on 12/31/2022 by Mo Alcala MD at [facility] Left: Iliac [employer] [id number] 09/12/2025 [id number] A / [id number] / [id number] Cath Viabahnbx 5y38qer165pl - [id number] - [id number] Implanted:Qty: 1 on 12/31/2022 by Mo Alcala MD at [facility] Right: Iliac [employer] [id number] 07/28/2025 [id number] A / [id number] / [id number] Stent Innova 8 X 60 X130 - [id number] Implanted:Qty: 1 on 12/31/2022 by Mo Alcala MD at [facility] [employer] : PERIPHL IV [id number] 07/03/2027 [id number] / / [id number] Duraclip 16mm Xlg Repostn - [id number] Implanted:Qty: 1 on 04/15/2023 by Magdaleno Flores MD at ENDOSCOPY [facility] Colon CONMED IVETTE [id number] 01/17/2024 DC023 5W / / [id number] Duraclip 16mm Xlg Repostn - [id number] Implanted:Qty: 1 on 04/15/2023 by Magdaleno Flores MD at ENDOSCOPY [facility] Colon CONMED IVETTE [id number] 04/08/2024 DC023 5W / / [id number] Duraclip 16mm Xlg Repostn - [id number] Implanted:Qty: 1 on 04/15/2023 by Magdaleno Flores MD at ENDOSCOPY [facility] [id number] 01/17/2024 DC023 5W / / [id number] Hemostasis [id number] 2.8mm Clip Sheath Repositionable - [id number] Implanted:Qty: 1 on 10/29/2023 by Magdaleno Flores MD at ENDOSCOPY [facility] [id number] 08/06/2024 DC023 5W / / [id number] Hemostasis [id number] 2.8mm Clip Sheath Repositionable - [id number] Implanted:Qty: 1 on 10/29/2023 by Magdaleno Flores MD at [facility] [id number] 08/06/2024 DC023 5W / / [id number] Hemostasis [id number] 2.8mm Clip Sheath Repositionable - [id number] Implanted:Qty: 1 on 10/29/2023 by Magdaleno Flores MD at [facility] [id number] 08/06/2024 DC023 5W / / [id number] documented as of this encounter Procedures Procedure Name Priority Date/Time Associated Diagnosis Comments VASC AORTIC DUPLEX EVAL-COMPLETE Routine 12/19/2023 10:02 AM EDT PAD (peripheral artery disease) (HCC) documented in this encounter Results * VASC AORTIC DUPLEX EVAL-COMPLETE (12/19/2023 10:02 AM EDT) Anatomical Region Laterality Modality Abdomen, Vascular Ultrasound Impressions 12/19/2023 4:37 PM EDT : There is no evidence of an abdominal aortic aneurysm. There are 50 to 69% stenoses of the right stented common and external iliac arteries. There is a greater than 70% stenosis of the distal right external iliac artery. There is a 50 to 69% stenosis of the left external iliac artery. Narrative 12/19/2023 4:37 PM EDT VASCULAR LAB RESULTS DATE OF EXAM: 12/19/23 PRESENTING CONDITIONS: S/P bilateral PAO stents and REIA stent. Immediately before proceeding with the vascular lab procedure reported below, the identity of the patient, the correct exam and the correct procedural site were verified. Mtz scale, color flow and spectral doppler were performed for this examination. PHYSICIAN REPORT: Abdominal Aorta Duplex Examination. Spectral Doppler demonstrates evidence of normal waveforms of the abdominal aorta. Peak systolic velocity measurements of the aorta are 63 centimeters per second. The maximum diameter of the proximal abdominal aorta measures 2.0 centimeters by 2.0 centimeters. The maximum diameter of the mid abdominal aorta measures 1.8 centimeters by 1.7 centimeters. The maximum diameter of the distal abdominal aorta measures 2.0 centimeters by 2.0 centimeters. The maximum diameter of the proximal right common iliac artery measures 1.2 centimeters by 1.2 centimeters. The maximum diameter of the proximal left common iliac artery measures 1.2 centimeters by 1.2 centimeters. Right stented common iliac artery has velocity of 184 m/sec with biphasic waveform. Right stented external iliac artery has velocity of 246 m/sec with triphasic waveform. Right external iliac artery distal to the stent has velocity of 301 m/sec with biphasic waveform. Left stented common iliac artery has velocity of 113 m/sec with biphasic waveform. Left external iliac artery has velocity of 189 m/sec with biphasic waveform. [facility] documented in this encounter Care Teams Mathematics Technician Relationship Specialty Start Date End Date Minesh Ngo DO [address] [place] [address] PCP - General Family Medicine 10/22/17 documented as of this encounter
--- OUTSIDE RECORDS SUMMARY | 2023-12-31 04:33 | External Medical Summary | Summary of Care ---
Author Name Unknown Organization [facility] Address [address] [place] [address] Phone [phone] Care Team Providers Care Playroom Attendant Name Role Phone HuberMinesh DO Primary Care Provider [phone] Reason for Visit * Reason Comments Follow Up Encounter Details Date Type Department Care Team (Late st Contact Info) Description 12/26/2023 10:50 AM EDT Office Visit Vascular Surgery, [address] [address] Mo Alcala MD [address] [place] [address] PAD (peripheral artery disease) ([facility])*; Dyslipidemia, goal LDL below 100 Allergies Active Allergy Reactions Criticality Noted Date Comments Statins 08/23/2015 Patient states had nausea with them- but takes Statins now documented as of this encounter (statuses as of 12/26/2023) Medications Medication Sig Dispensed Refills Start Date [...] 1 Tablet by mouth. 0 05/21/2023 Active [employer] Flex System w/Device Kit USE TO TEST BLOOD SUGAR 2 TIMES A DAY 0 09/23/2023 Active [employer] In Vitro Strip USE TO TEST BLOOD SUGAR 2 TIMES A DAY 0 09/20/2023 Active [employer] Delica Plus [id number] TEST BLOOD SUGAR WITH FINGERSTICKS 2 TIMES [...] as of this encounter (statuses as of 12/26/2023) Active Problems Problem Noted Date Diagnosed Date Claudication in peripheral vascular disease 06/2023 Preoperative cardiovascular examination 01/09/20 18 HTN, goal below 140/90 03/20/2017 Adenomatous polyp of colon 03/20/2017 Chronic gastritis without bleeding 03/20/2017 documented as of this encounter (statuses as of 12/26/2023) Resolved Problems Problem Noted Date Diagnosed Date Resolved Date Arthralgia 03/20/2017 05/13/2017 documented as of this encounter (statuses as of 12/26/2023) Social History Tobacco Use Types Packs/Day Years [...] Sign Reading Time Taken Comments Blood Pressure 126/62 12/26/2023 10:42 AM EDT Pulse 86 12/26/2023 10:42 AM EDT Temperature - - Respiratory Rate - - Oxygen Saturation - - Inhaled Oxygen Concentration - - Weight 81.6 kg (179 lb 14.4 oz) 024 10:42 AM EDT Height - - Body Mass Index 29.94 10/22/2023 8:40 AM EST documented in this [...] as of this encounter Progress Notes * Cody Crum CRNP - 12/26/2023 10:50 AM EDT Images from the original note were not included. Date of Service: 12/26/2023 10:43 AM Sophie Myers is a 73 year old female. Patient being seen in consultation at the request of Ramona Navas DPM (podiatry) ; Minesh Ngo DO Chief Complaint: Here for f/u of LE revascularization from 12/31/22 Back pain and leg weakness have progressed. Accompanied by . HPI: Former smoker with HTN and lung cancer L leg claudication since at least summer 2021. Toes on L foot were "cold all the time". Tenderness/sensitivity of L great toe. No ischemic rest pain. No open ulcers; has a fissure on the L great toe. She felt that her symptoms were lifestyle-limiting, though we counseled her that they were multifactorial. She wished to proceed with LE revascularization. S/P bilateral EIA stenting, mechanical thrombectomy of REIA/RCFA with Penumbra Rotarex, and REIA stenting 12/31/[address] Alcala. Still complains of lots bilateral leg leg stiffness, weakness, achiness, etc. Pains with bending, twisting, turning, and squatting. She was been sleeping in a recliner since 2001, because she is more comfortable in that. Chronic back pain. FAMILY HISTORY: Family history is noncontributory. Current Outpatient Medications Medication Sig Dispense Refill omeprazole (PRILOSEC) 40 MG CPDR Take one daily 90 Cap 1 amLODIPine Besylate 10 MG Oral Tablet (Norvasc) Take 1 Tablet by mouth in the morning. Ezetimibe 10 MG Oral Tablet (Zetia) Take 1 Tablet by mouth in the morning. In the morning.. Ondansetron 8 MG Oral Tablet Disintegrating Place 1 Tab on tongue every 8 hours as needed for Nausea for up to 2 doses. dissolve on tongue. Take on tablet prior to colon prep, May repeat 8 hours after prep 2 Tab 0 Dexamethasone 4 MG Oral Tablet (Decadron) Ondansetron HCl 4 MG Oral Tablet (Zofran) Aspirin EC 81 MG Oral Tablet Delayed Release Take 1 Tablet by mouth in the morning. 90 Tablet 3 Rosuvastatin Calcium 40 MG Oral Tablet (Crestor) Take 1 Tablet by mouth in the morning. 30 Tablet 5 Vitamin D3 25 MCG (1000 UT) Oral Tablet (Vitamin D3) Take 1 Tablet by mouth in the morning. Hydrocortisone 5 MG Oral Tablet (Cortef) Take 1 Tablet by mouth. [employer] Verio Flex System w/Device Kit USE TO TEST BLOOD SUGAR 2 TIMES A DAY OneTouch Verio In Vitro Strip USE TO TEST BLOOD SUGAR 2 TIMES A DAY OneTouch Delica Plus [id number] TEST BLOOD SUGAR WITH FINGERSTICKS 2 TIMES A DAY Potassium Chloride ER 20 MEQ Oral Tablet Extended Release Take 1 Tablet by mouth in the morning. metFORMIN HCl ER 500 MG Oral Tablet Extended Release 24 Hour (Glucophage XR) TAKE 1 TABLET BY MOUTHIN THE MORNING AND EVENING. IF TOLERATING AFTER 2 WEEKS, INCREASE BY 1 TABLET UNTIL TAKING 2 TABLETS IN THE MORNING A Clopidogrel Bisulfate 75 MG Oral Tablet (pLAVix) Take 1 Tablet by mouth in the morning. 90 Tablet 3 Vitamin C 100 MG Oral Tablet Take 1 Tablet by mouth in the morning. (Patient not taking: Reported on 12/25/2023) Folic Acid 1 MG Oral Tablet TAKE ONE TABLET BY MOUTH EVERY DAY, BEGIN 1 WEEK BEFORE INITIAL PEMETREXED DOSE AND CONTINUE UNTIL THREE WEEKS PAST FINAL DOSE (Patient not taking: Reported on 08/22/2023) Ciprofloxacin HCl 500 MG Oral Tablet (Cipro) Take 1 Tablet by mouth in the morning and 1 Tablet before bedtime. (Patient not taking: Reported on 10/29/2023) 6 Tablet 0 Cephalexin 500 MG Oral Capsule (Keflex) TAKE ONE CAPSULE BY MOUTH TWICE A DAY FOR 7 DAYS (Patient not taking: Reported on 10/29/2023) Metoclopramide HCl 5 MG Oral Tablet (Reglan) 30 minutes beforeprep and then 8 hours (Patient not taking: Reported on 10/29/2023) 2 Tablet 0 No current facility-administered medications for this visit. Review of patient's allergies indicates: Allergen Reactions Statins Patient states had nausea with them- but takes Statins now Patient Active Problem List Diagnosis Code HTN, goal below 140/90 I10 Adenomatous polyp of colon D12.6 Chronic gastritis without bleeding K29.50 Preoperative cardiovascular examination Z01.810 Claudication in peripheral vascular disease ([facility]) I73.9 Past Medical History: Diagnosis Date Anxiety Arthritis COPD (chronic obstructive pulmonary disease) ([facility]) Dry eyes GERD (gastroesophageal reflux disease) Lumbar stenosis Lung cancer ([facility]) 2020 Neuropathy Personal history of colonic polyps 08/11/2014 several adenomatous and hyperplastic polyps PVD (peripheral vascular disease) ([facility]) Past Surgical History: Procedure Laterality Date BREAST BIOPSY Bilateral 1971 benign COLONOSCOPY, DIAGNOSTIC (RECTUM) 08/11/2014 several adenomatous and hyperplastic polyps. repeat in 3 yrs/COLONOSCOPY FLEXIBLE PROXIMAL DIAGNOSTIC performed by Vaughn Greer DO at [facility] COLONOSCOPY, DIAGNOSTIC (RECTUM) N/A 10/23/2017 adenomatous and hyperplastic polyps/recall 1 year/COLONOSCOPY FLEXIBLE PROXIMAL DIAGNOSTIC performed by Vaughn Greer DO at [facility] COLONOSCOPY, DIAGNOSTIC (RECTUM) N/A 12/19/2018 tattoo seen in transverse colon/benign adenomatous polyps/recall 2 years/Colonoscopy COLONOSCOPY, DIAGNOSTIC (RECTUM) N/A 12/19/2018 COLONOSCOPY FLEXIBLE PROXIMAL DIAGNOSTIC performed by Yani De Leon MD at [facility] COLONOSCOPY, DIAGNOSTIC (RECTUM) N/A 02/17/2021 biopsies show adenomatous polyps/recall 1 year/COLONOSCOPY FLEXIBLE PROXIMAL DIAGNOSTIC performed by Yani De Leon MD at [facility] COLONOSCOPY, DIAGNOSTIC (RECTUM) N/A 08/09/2022 hemorrhoids/28 colon polyps found/biopsies show adenomatous polyps/recall 3 months/Colonoscopy COLONOSCOPY, DIAGNOSTIC (RECTUM) N/A 08/29/2022 multiple small and large mouthed diverticula in sigmoid and descending colon/hemorrhoids/biopsies show adenomatous polyps/recall 6 months/COLONOSCOPY FLEXIBLE PROXIMAL DIAGNOSTIC performed by Magdaleno Flores MD at [facility] COLONOSCOPY, DIAGNOSTIC (RECTUM) N/A 08/09/2022 COLONOSCOPY FLEXIBLE PROXIMAL DIAGNOSTIC performed by Magdaleno Flores MD at [facility] COLONOSCOPY, DIAGNOSTIC (RECTUM) 04/15/2023 multiple polyps/biopsies show tubulovillous adenoma/recall 6 months/COLONOSCOPY FLEXIBLE PROXIMAL DIAGNOSTIC performed by Magdaleno Flores MD at [facility] COLONOSCOPY, DIAGNOSTIC (RECTUM) N/A 10/29/2023 mulitple small and large mouthed diverticula sigmoid and descending colon/biopsies show adenomatouspolyps/recall 6-9 months/COLONOSCOPY FLEXIBLE PROXIMAL DIAGNOSTIC performed by Kylie Flores MD at [facility] EGD, FLEXIBLE, DIAGNOSTIC N/A 08/29/2022 normal/ESOPHAGOGASTRODUODENOSCOPY (EGD), FLEXIBLE, TRANSORAL, DIAGNOSTIC performed by Magdaleno Flores MD at [facility] ILIAC ART REVASC W/ STENT,ADDL IPSILATERAL Right 12/31/2022 ILIAC ART REVASC W/ STENT,ADDL IPSILATERAL performed by Mo Alcala MD [place] [facility] [place]IAC ART. REVASC W/ STENT+ANGIOPLASTY Bilateral 12/31/2022 ILIAC ARTERY REVASC W/ STENT+ANGIOPLASTY performed by Mo Alcala MD at [place] [facility] [place] INFORMATION 11/2011 blepharopigmentation (Moonlight Tattoo) IR ARTERIOGRAM EXTREMITY BILATERAL Bilateral 12/31/2022 ANGIOGRAPHY EXTREMITY BILATERAL performed by Mo Alcala MD at [place] [facility] [place] IR BIOPSY 08/14/2021 PARTIAL HYSTERECTOMY 1986 THROMBECTOMY, PERC PRIMARY ARTERIAL MECHANICAL, INIT Right 12/31/2022 MECHANICAL THROMBECTOMY, ARTERIAL OR ARTERIAL BYPASS GRAFT, INITIAL VESSEL performed by Mo Alcala MD [place] [facility] [place] Family History Problem Relation Age of Onset No Known Problems Other view genetics visit note from 11/06/2022 for updated phx and famhx Social History Socioeconomic History Marital status: Spouse name: Not on file Number of children: Not on file Years of education: Not on file Highest education level: Not on file Occupational History Not on file Tobacco Use Smoking status: Former Current packs/day: 0.75 Types: Cigarettes Smokeless tobacco: Never Tobacco comments: < 1 ppd as of 4/4/18 (quit 19 months ago) Vaping Use Vaping [...] on file Housing Stability: Not on file COMPLETE REVIEW OF SYSTEMS: CONSTITUTIONAL: Denies fever, Denies shaking chills. EYES: Denies amaurosis fugax. CARDIOVASCULAR: denies chest pains, denies SD, denies CHF, denies palpitations. RESPIRATORY: denies shortness of breath, reports NI, reports lung cancer. GASTROINTESTINAL: denies melena, denies bright red blood per rectum. GENITOURINARY: denies hematuria. MUSKULOSKELETAL: denies arthritis, denies chronic neck pain, reports chronic low back pain. SKIN: denies rash, denies ulcers. NEUROLOGICAL: denies TIA, denies CVA, denies amaurosis fugax. ENDOCRINOLOGIC: denies NIDDM, denies IDDM, reports hyperlipidemia. HEMATOLOGIC: denies hx of DVT/PE. GENERAL MULTI-SYSTEM PHYSICAL EXAM: VITAL SIGNS: Filed Vitals: 12/26/23 1042 BP: 126/62 Pulse: 86 Weight: 81.6 kg (179 lb 14.4 oz) BP Cuff Size: Regular BP Position: Sitting BP Site: Left Arm BP 126/62 (BP Site: Left Arm, BP Position: Sitting, BP Cuff Size: Regular) | Pulse 86 | Wt 81.6 kg (179 lb 14.4 oz) | BMI 29.94 kg/m | BSA 1.93 m GENERAL MULTI-SYSTEM PHYSICAL EXAM: GENERAL: Normal grooming habits, no acute distress and appears stated age. RESPIRATORY: respiratory effort normal CARDIOVASCULAR: no edema and no varicosities. GASTROINTESTINAL: no tenderness, protuberant and abdominal aorta not palpable. SKIN: No ulcers, no rubor PSYCHIATRIC: orientation to time, place and person normal and recent and remote memory normal. EYES: conjunctivae normal, eye lids normal and irises normal. NEUROLOGIC: Motor function intact and Sensory exam intact PULSE SCALE: Carotid Right:----Bruit: No Left:----Bruit: No Radial Right: 2 Left: 2 Femoral Right: 2 Left: 1 Popliteal Right: 0 Left: 0 Dorsalis Pedis Right: 3 Left: 2 Posterior Tibial Right: 0 Left: 2 PULSE SCALE: 4=Aneurysmal; 3=Normal; 2=Diminished; 1=Barely Palpable; 0=Absent DIAGNOSTIC STUDIES: 12/19/23: SAEED: 0.7/0.8, tri/tri 12/19/23: BLE Duplex: RCIA 184, REIA 301 LCIA 113, MOJGAN 189 09/10/23: CTA: No significant re-stenosis. No AAA 08/12/23: SAEED: 0.8/0.95 08/12/23: BLE Art: RCIA 186, REIA 300, RCFA 199 LCIA 118, MOJGAN 243, LCFA 149 02/06/23: SAEED: 0.9/0.9 5/3/23: LLE Art: LCIA 117, MOJGAN 204, LCFA 94, LDFA 87, LSFA 183, L-pop 81, L- tib/per 44, L-at 26, L-pt 64, L-per 52 The above diagnostic images were directly visualized and independently interpreted by me on 12/26/2023 with results as above 12/13/22: CTA Abd/Pelv: Very small vessels. 12 mm aorta. Diseased PAO/EIAs bilaterally, moreso on theL. CFAs pretty clean. Prox SFAs patent. 11/12/22: SAEED: 0.95/0.59 04/25/22: SAEED: CT : NO AAA. Small aorta with diseased iliacs. LABS: Hemoglobin A1C (%) Date Value 01/01/2023 5.8 (H) HGB Date Value 03/05/2023 13.4 g/dL 01/17/2021 15.5 G/DL 05/27/2017 15.0 g/dL Lab Results Component Value Date/Time CREATININE - [facility] 0.9 03/05/2023 02:30 PM CREATININE - [facility] 0.7 01/01/2023 06:55 AM CREATININE - [facility] 0.8 12/25/2022 01:03 PM CREATININE - [facility] 0.9 05/27/2017 08:18 PM CREATININE - [facility] 0.7 05/13/2017 12:20 PM CREATININE - [facility] 0.9 01/05/2016 09:31 AM CREATININE-OUTSIDE LAB 0.70 01/17/2021 12:00 AM Lab Results Component Value Date/Time LDL (CALCULATED)-OUTSIDE LAB 114 01/17/2021 12:00 AM LDL CHOLESTEROL (CALCULATED) - [facility] 130 (H) 03/20/2017 11:23 AM LDL CHOLESTEROL (DIRECT MEASURE) - [facility] NOT APPLICABLE 03/20/2017 11:23 AM The above clinical labs were reviewed by me on 12/26/2023 IMPRESSIONS: S/P bilateral PAO stenting, mechanical thrombectomy of REIA/RCFA with Penumbra Rotarex, and REIA stenting 12/31/[address] Alcala. No AAA, per 2022 CT. Former smoker. HTN. Dyslipidemia. Crestor 40 mg. Zetia 10 mg Lung cancer. No chemo since 02/2023 Chronic back pain. PLAN: S/P bilateral PAO stents and REIA stent. 08/2023 duplex: RCIA 186, REIA 300, RCFA 199 LCIA 118, MOJGAN 243, LCFA 149 09/2023 CTA suggested no significant re-stenosis, as was somewhat expected. 12/2023: BLE Duplex: RCIA 184, REIA 301 LCIA 113, MOJGAN 189 Plan to repeat non-invasive studies in 6 months. Continue daily 81 mg aspirin and daily 75 mg Plavix for iliac stents/PAD Continue 40 mg Crestor and 10 mg Zetia for dyslipidemia. I suggested she pursue physical therapy for her back pain/leg weakness. Patient/ will make arrangements. RTC in [address] Alcala at [place] with an aortic duplex and SAEED completed 2 weeks prior. 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 The patient was seen and examined with Mo Alcala MD. ABENA Manuel I have reviewed the advanced practitioner's documentation on the date of service referenced in note, and I agree with, and take responsibility for the plan of care. 73F with multifactorial lower extremity pain but she did have a component of arterial insufficiency. She had severe left PAO stenosis on CT scan. Some EIA disease also. She's getting chemo for lung cancer. She underwent iliac revasc with bilateral PAO stenting and R EIA stenting in late December 2022. Noninvasives at last visit concerning for possible R EIA stenosis, CTA was not consistent with this. Noninvasive testing is stable today. Recommend continuing DAPT and Crestor/Zetia as detailed above. She is going to pursue PT and may also benefit from further evaluation of her lumbar spine disease. We will plan for follow up in the vascular surgery clinic in 6 months to assess her progress, with noninvasive testing performed prior to the appointment. Mo Alcala MD Associate Vascular Surgeon Division of Vascular and Endovascular Surgery [facility] documented in this encounter Nursing Notes * Odalys Gaviria, RONNY ESTRELLA - 12/26/2023 10:44 AM EDT Reviewed the option of transferring scripts to [facility] pharmacy with patient and / or family. Patient was instructed to not get up on the exam table/exam chair until directed and assisted by their provider; patient is to remain seated in the chair/ wheelchair/ exam table/ exam chair for fall prevention and safety reasons. Patient is aware to have assistance to step down off exam table/exam chair with personnel. Patient voiced full comprehension of instructions. RONNY Basurto documented in this encounter Plan of Treatment Upcoming Encounters Date Type Department Care Team (Late st Contact Info) Description 12/31/2023 9:15 AM EDT Imaging Radiology, [place] [address] [place] [address] 01/06/2024 10:15 AM EDT Hospital Encounter Radiology, [address] [place] [address] 03/18/2024 11:00 AM EDT Office Visit General Surgery Derek Oneil [address] [facility] [address] [place] [address] Soren Luna, DO [address] [place] [address] 05/14/2024 8:00 AM EDT Hospital Encounter [facility], Endoscopy [address] [phone] Magdaleno Flores MD [address] [place] [address] 05/14/2024 8:00 AM EDT - 05/14/2024 9:00 AM EDT Surgery [facility], Endoscopy [address] [phone] Magdaleno Flores MD [address] [place] [address] COLONOSCOPY FLEXIBLE PROXIMAL DIAGNOSTIC 05/27/2024 8:30 AM EDT Appointment Vascular Lab, [address] [address] 05/27/2024 9:00 AM EDT Appointment Vascular Lab, [address] [place] [address] 06/04/2024 10:50 AM EDT Office Visit Vascular Surgery, [address] [address] Mo Alcala MD [facility] [place] [address] Scheduled Orders Name Type Priority Associated Diagnoses Orde r Schedule VASC AORTIC DUPLEX EVAL-COMPLETE Medical Imaging Routine PAD (peripheral artery disease) (HCC) Dyslipidemia, goal LDL below 100 Ordered: 12/26/2023 VASC ANKLE BRACHIAL INDICES WITHOUT PPG (PAD) Medical Imaging Routine PAD (peripheral artery disease) (HCC) Dyslipidemia, goal LDL below 100 Ordered: 12/26/2023 Scheduled Procedures Name Priority Associated Diagnoses Date/Ti [...] (#1) 2023 06/25/2017 (Declined) GFR 03/05/2024 03/05/2023, 03/05/2023, 12/25/2022, Additional history exists COLONOSCOPY-ANNUAL AGES 18-100 [...] this encounter Medical Devices Implanted Type Area Visual Display Associate Device Identifier Shelf Expiration Date Model / Serial / Lot Duraclip 16mm Xlg Repostn - [id number] Implanted:Qty: 1 on 08/09/2022 by Magdaleno Flores MD at [facility] N/A: Colon CONMED IVETTE [id number] 04/07/2024 [id number] / / [id number] Description:colon Duraclip 16mm Xlg Repostn - [id number] Implanted:Qty: 2 on 08/09/2022 by Magdaleno Flores MD at [facility] N/A: Colon CONMED IVTETE [id number] 04/07/2024 [id number] / / [id number] Description:colon Clip Quick 2.8mm 230cm - [id number] Implanted:Qty: 3 on 08/09/2022 by Magdaleno Flores MD at [facility] N/A: Colon rumr: turn off the lights [id number] 08/06/2024 HX-[id number]. [id number] / / [id number] Description:colon Duraclip 16mm Xlg Repostn - [id number] Implanted:Qty: 1 on 08/29/2022 by Magdaleno Flores MD at [facility] N/A: Colon CONMED IVETTE [id number] 12/05/2024 [id number] / / [id number] Cath Viabahnbx [id number] - [id number] Implanted:Qty: 1 on 12/31/2022 by Mo Alcala MD at [facility] Left: Iliac [employer] [id number] 09/12/2025 [id number] / [id number] / [id number] Cath Viabahnbx [id number] - [id number] - [id number] Implanted:Qty: 1 on 12/31/2022 by Mo Alcala MD [place] [facility] [place] Right: Iliac [employer] [id number] 07/28/2025 [id number] / [id number] / [id number] Stent Innova 8 X 60 X130 - [id number] Implanted:Qty: 1 on 12/31/2022 by Mo Alcala MD at [place] [facility] [place] [employer] : PERIPHL IV [id number] 07/03/2027 [id number] / / [id number] Duraclip 16mm Xlg Repostn - [id number] Implanted:Qty: 1 on 04/15/2023 [facility] [id number] 01/17/2024 DC023 5W / / [id number] Duraclip 16mm Xlg Repostn - [id number] Implanted:Qty: 1 on 04/15/2023 by [facility] [id number] 04/08/2024 DC023 5W / / [id number] Duraclip 16mm Xlg Repostn - [id number] Implanted:Qty: 1 on 04/15/2023 by [facility] [id number] 01/17/2024 DC023 5W / / [id number] Hemostasis [id number] 2.8mm Clip Sheath Repositionable - [id number] Implanted:Qty: 1 on 10/29/2023 by [facility] [id number] 08/06/2024 DC023 5W / / [id number] Hemostasis [id number] 2.8mm Clip Sheath Repositionable - [id number] Implanted:Qty: 1 on 10/29/2023 by Magdaleno Flores MD at [facility] [id number] 08/06/2024 DC023 5W / / [id number] Hemostasis [id number] 2.8mm Clip Sheath Repositionable - [id number] Implanted:Qty: 1 on 10/29/2023 by Magdaleno Flores MD at [facility] [employer] [facility] [id number] 08/06/2024 DC023 5W / / [id number] documented as of this encounter Visit Diagnoses Diagnosis PAD (peripheral artery disease) (HCC)- Primary Peripheral vascular disease, unspecified Dyslipidemia, goal LDL below 100 Other and unspecified hyperlipidemia History of colonic polyps Personal history of colonic polyps documented in this encounter Care Teams Playroom Attendant Relationship Specialty Start Date End Date Minesh Ngo DO [address] [place] [address] PCP - General Family Medicine 10/22/17 documented as of this encounter
--- OUTSIDE RECORDS SUMMARY | 2023-12-31 04:33 | External Medical Summary | Summary of Care ---
Author Name Unknown Organization [facility] Address [address] [place] [address] Phone [phone] Care Team Providers Care Distribution Engineering Technologist Name Role Phone Minesh Ngo DO Primary Care Provider [phone] Encounter Details Date Type Department Care Team (Latest Contact Info) Description 12/19/2023 9:04 AM EDT - 12/19/2023 11:59 PM EDT Hospital Encounter Vascular Lab, [address] [address] Arrived Discharge Disposition: Home - [...] 1 Tablet by mouth. 0 05/21/2023 Active [employer] Flex System w/Device Kit USE TO TEST BLOOD SUGAR 2 TIMES A DAY 0 09/23/2023 Active [employer] In Vitro Strip USE TO TEST BLOOD SUGAR 2 TIMES A DAY 0 09/20/2023 Active Screen Tonic Delica Plus [id number] TEST BLOOD SUGAR WITH FINGERSTICKS 2 TIMES [...] [place] [address] [address] Soren Luna DO [address] [place] [address] 12/26/2023 10:50 AM EDT Office Visit Vascular Surgery, [place] [address] [facility] [address] [id number] Mo Alcala MD [address] [place], [place] [id number] 12/31/2023 9:15 AM EDT Imaging Radiology, [place] [address] [place] [id number] 05/14/2024 8:00 AM EDT Hospital Encounter ENDO [facility], Endoscopy [address] [phone] Magdaleno Flores MD [address] [address] 05/14/2024 8:00 AM EDT - 05/14/2024 9:00 AM EDT Surgery ENDO [facility], Endoscopy [address] [phone] Magdaleno Flores MD [address] [address] COLONOSCOPY FLEXIBLE PROXIMAL DIAGNOSTIC Scheduled Procedures Name [...] this encounter Medical Devices Implanted Type Area Oil Developer Device Identifier Shelf Expiration Date Model / Serial / Lot Duraclip 16mm Xlg Repostn - [id number] Implanted:Qty: 1 on 08/09/2022 by Magdaleno Flores MD at ENDOSCOPY [facility] N/A: Colon [employer]MED [employer]ETTE [id number] 04/07/2024 [id number] / / [id number] Description:colon Duraclip 16mm Xlg Repostn - [id number] Implanted:Qty: 2 on 08/09/2022 by Magdaleno Flores MD at ENDOSCOPY [facility] N/A: Colon [employer]MED [employer]ETTE [id number] 04/07/2024 [id number] / / [id number] Description:colon Clip Quick 2.8mm 230cm - [id number] Implanted:Qty: 3 on 08/09/2022 by Magdaleno Flores MD at ENDOSCOPY [facility] N/A: Colon [employer] [id number] 08/06/2024 [id number]-[id number]. [id number] / / [id number] Description:colon Duraclip 16mm Xlg Repostn - [id number] Implanted:Qty: 1 on 08/29/2022 by Magdaleno Flores MD at ENDOSCOPY [facility] N/A: Colon [employer]MED [employer]ETTE [id number] 12/05/2024 [id number] / / [id number] Cath Viabahnbx [id number] - [id number] Implanted:Qty: 1 on 12/31/2022 by Mo Alcala MD at [facility] Left: Iliac [employer] [id number] 09/12/2025 [id number] / [id number] / [id number] Cath Viabahnbx [id number] - [id number] - [id number] Implanted:Qty: 1 on 12/31/2022 by Mo Alcala MD at [facility] Right: Iliac [employer] [id number] 07/28/2025 [id number] / [id number] / [id number] Stent Innova 8 X 60 X130 - [id number] Implanted:Qty: 1 on 12/31/2022 by Mo Alcala MD at [facility] [employer] : PERIPHL [place] [id number] 07/03/2027 [id number] / / [id number] Duraclip 16mm Xlg Repostn - [id number] Implanted:Qty: 1 on 04/15/2023 by Magdaleno Flores MD at ENDOSCOPY [facility] Colon [employer]MED IV[employer]TE [id number] 01/17/2024 DC023 5W / / [id number] Duraclip 16mm Xlg Repostn - [id number] Implanted:Qty: 1 on 04/15/2023 by Magdaleno Flores MD at ENDOSCOPY [facility] Colon [employer]TE [id number] 04/08/2024 DC023 5W / / [id number] Duraclip 16mm Xlg Repostn - [id number] Implanted:Qty: 1 on 04/15/2023 by Magdaleno Flores MD at ENDOSCOPY [facility] [id number] 01/17/2024 DC023 5W / / [id number] Hemostasis [id number] 2.8mm Clip Sheath Repositionable - [id number] Implanted:Qty: 1 on 10/29/2023 by Magdaleno Flores MD at ENDOSCOPY [facility] [id number] 08/06/2024 DC023 5W / / [id number] Hemostasis [id number] 2.8mm Clip Sheath Repositionable - [id number] Implanted:Qty: 1 on 10/29/2023 by Magdaleno Flores MD at [facility] [id number] 08/06/2024 DC023 5W / / [id number] Hemostasis [id number] 2.8mm Clip Sheath Repositionable - [id number] Implanted:Qty: 1 on 10/29/2023 by Magdaleno Flores MD at ENDOSCOPY [facility] [id number] 08/06/2024 DC023 5W / / [id number] documented as of this encounter Procedures Procedure Name Priority Date/Time Associated Diagnosis Comments VASC ANKLE BRACHIAL INDICES WITHOUT PPG (PAD) Routine 12/19/2023 9:59 AM EDT PAD (peripheral artery disease) (HCC) documented in this encounter Results * VASC ANKLE BRACHIAL INDICES WITHOUT PPG (PAD) (12/19/2023 9:59 AM EDT) Anatomical Region Laterality Modality Extremity, Ankle, Vascular, Lower Extremity, Rasheed t Ultrasound Impressions 12/19/2023 4:37 PM EDT : SAEED at rest is 0.72 on the right and 0.83 on the left. For the right lower extremity: Lower extremity Doppler Evaluation is consistent with mild arterial occlusive disease. For the left lower extremity: Lower extremity Doppler Evaluation is consistent with mild arterial occlusive disease. Incidental note: PPG tracings of the left lower digits are flat or nearly flat. Narrative 12/19/2023 4:37 PM EDT VASCULAR LAB RESULTS DATE OF EXAMINATION: 12/19/23 INDICATION: S/P bilateral PAO stents and REIA stent. ANKLE BRACHIAL INDEX OF THE LOWER EXTREMITIES Immediately before proceeding with the vascular lab procedure reported below, the identity of the patient, the correct exam and the correct procedural site were identified. Continuous wave doppler and appropriate size pressure cuffs were utilized during the examination. Previous examination of 08/12/2023 showed an SAEED at rest of 0.79 on the right and 0.95 on the left. Findings: The right and left brachial artery blood pressures are 148 mmHg and 153 mmHg respectively. On the right, the posterior tibial artery waveform is biphasic and has an amplitude which is good. The right dorsalis pedis artery waveform is biphasic and has an amplitude which is excellent. The right peroneal artery waveform is biphasic and has an amplitude which is good. The tibial pressures range from 100 mmHg to 110 mmHg. On the left, the posterior tibial artery waveform is biphasic and has an amplitude which is excellent. The left dorsalis pedis artery waveform is biphasic and has an amplitude which is excellent. The left peroneal artery waveform is biphasic and has an amplitude which is excellent. The tibial pressures range from 113 mmHg to 127 mmHg. Authorizing Provider Result [facility] documented in this encounter Care Teams Distribution Engineering Technologist Relationship Specialty Start Date End Date Minesh Ngo DO [address] [place] [address] PCP - General Family Medicine 10/22/17 documented as of this encounter
[2023-12-31] MEDS: ACETAMINOPHEN 325 MG TAB PO PRN (04:56)
[2023-12-31] MEDS: methylPREDNISolone 4 MG TAB PO SCH (06:23)
[2023-12-31 06:35] LABS: Hematocrit (blood only) 39.3 % (37.0-47.0); Hemoglobin 12.6 g/dl (12.0-16.0); Mean Corpuscular Hemoglobin 31.3 pg (25.0-34.0); Mean Corpuscular Hgb Conc 32.1 g/dL (32.0-36.0); Mean Corpuscular Volume 97.5 fL (80.0-100.0); Mean Platelet Volume 9.5 fL (9.4-12.4); Platelet Count 230 K/uL (130-400); RDW Coefficient of Variation 14.9 % (11.5-14.5); RDW Standard Deviation 53.6 fL (36.4-46.3); Red Blood Count 4.03 M/uL (4.20-5.40); White Blood Count 10.08 K/ul (4.8-10.8)
[2023-12-31 06:47] LABS: C Reactive Protein < 0.50 mg/dl (0-0.5); Creatine Kinase 1026 U/L (26-192)
[2023-12-31 06:55] LABS: Calcium 7.4 mg/dl (8.6-10.3); Creatinine Clr Calc Pharmacy 75.6 ml/min; Est GFR (African American) 98.7 ml/min; Est GFR (Non-African American) 85.2 ml/min; Potassium 3.6 mmol/L (3.5-5.1)
[2023-12-31 07:00] LABS: Troponin I High Sensitivity 30.4 pg/ml (0-14)
[2023-12-31 07:07] LABS: Ferritin 276.1 ng/ml (8-388)
[2023-12-31 07:11] LABS: Albumin Level 2.6 gm/dl (3.4-5.0); Bilirubin Direct 0.1 mg/dl (0-0.2); Bilirubin,Total 0.4 mg/dl (0.2-1.0); Magnesium 2.1 mg/dl (1.7-2.4); Phosphorus 2.8 mg/dl (2.5-4.9); Total Protein 4.5 gm/dl (6.0-8.3)
[2023-12-31] MEDS: INSULIN ASPART PER UNIT CHARGE SC SCH (08:24)
[2023-12-31] MEDS: ENOXAPARIN INJ 40 MG/0.4 ML SYR SQ SCH (08:25)
[2023-12-31] MEDS: HYDROCORTISONE 10 MG TAB PO SCH ×2 (08:26→21:15)
[2023-12-31] MEDS: ASPIRIN 81 MG ECTAB PO SCH (08:26)
[2023-12-31] MEDS: CLOPIDOGREL BISULFATE 75 MG TAB PO SCH (08:26)
[2023-12-31] MEDS: PANTOprazole 40 MG TAB PO SCH (08:26)
[2023-12-31] MEDS: LOSARTAN POTASSIUM 25 MG TAB PO SCH (08:26)
--- NOTE | 2023-12-31 12:43 | Electrocardiogram Report ---
Test Reason : Blood Pressure : / mmHG Vent. Rate : 080 BPM Atrial Rate : 080 BPM P-R Int : 136 ms QRS Dur : 068 ms QT Int : 366 ms P-R-T Axes : 046 057 059 degrees QTc Int : 422 ms Normal sinus rhythm Septal infarct (cited on or before 17-JUL-2021) Abnormal ECG When compared with ECG of 17-JUL-2021 06:04, No significant change was found Confirmed by Dipesh Knight ([id number]) on 12/31/2023 12:42:50 PM Referred By: REFERRED SELF Confirmed By:Dipesh Knight
--- NOTE | 2023-12-31 12:59 | Hospitalist Progress Note ---
Date of Service December 31, 2023 Assessment & Plan (1) Bilateral leg weakness: Plan: 73yo female presenting with progressive bilateral LE weakness with difficulty ambulating and performing ADLs. Patient has had similar complaint in the past. She does have some proximal leg weakness on exam. Sensation is intact. Reflexes are difficult to elicit. She always feels the need to lift her leg up physically Etiology is uncertain, given her history of lung cell cancer, will rule out Eaton-Lambert. Obtain serology, although it is more common with small cell lung cancer Will also obtain CPK, electrolytes are within normal limits. Want to rule out myositis No overt signs of lumbar radiculopathy however will obtain MRI (2) Elevated liver enzymes: Plan: Unclear source. Hepatocellular pattern with OHF=461 and PCN=227. Normal AP and Tbili. No RUQ pain with palpation. Liver appears unremarkable on CT. Patient is s/p cholecystectomy - biliary ducts appear normal. -Check acute hepatitis panel -Check Acetaminophen level and Ferritin -Hold Crestor and Zetia for now -Repeat LFTs in AM (3) Adrenal insufficiency: Plan: Noted. Patient is normotensive. Na and K are within normal range -Continue home Hydrocortisone dosing -Low threshold for stress dosing (4) Diabetes mellitus: Plan: With elevated blood sugar at present = 220. Last HgbA1C on 12/02/23=6.1. Patient is on Metformin -Hold Metformin -ISS -Goal blood sugar 110 - 140 (5) Hypercholesterolemia: Plan: Chronic -Holding Crestor and Ezetimibe (6) Hypertension: Plan: Chronic. Mildly hypertensive here -Continue Losartan and Amlodipine at home doses -Monitor BP (7) GERD (gastroesophageal reflux disease): Plan: Noted -Protonix 40mg po daily (8) Adenocarcinoma, lung: Plan: Patient completed chemotherapy. Follows with Dr. Mayes of Oncology. Last PET scan 08/09/23 with stable pulmonary nodules with no evidence of FDG avid malignancy. (Note - CTA of the chest performed today was compared with CT from November 2021 and was read as progressive disease) Patient currently remains off chemotherapy. (9) Electrolyte abnormality: Plan: Hypophosphatemia and hypomagnesemia -Repletion -Repeat labs in AM Plan Continue to monitor in the hospital, Admission and Anticipated Discharge Date Admission Date: December 30, 2023 Subjective Patient seen and examined, still complains of generalized lower extremity weakness Review of Systems Review of Systems: All systems reviewed are negative, apart from the ones contained in the history. Physical Exam Physical Exam: The patient is awake, alert and oriented 3, well developed and well nourished, normocephalic and atraumatic, lying in bed and in no acute distress. HEENT--PERRL, EOMI, mucous membranes and oropharynx mildly dry Neck--supple. No JVD. No bruits. Thyroid normal, trachea midline, no adenopathy. Heart--normal S1 and S2. No murmurs, rubs or gallops. Lungs--clear bilaterally, no respiratory distress, no accessory muscle use. Abdomen--normal bowel sounds and soft. Extremities--no cyanosis or clubbing. No edema. Dermatologic--normal skin turgor, normal color, no abnormal lymph nodes, no rash. Neurologic--cranial nerves II through XII grossly intact. Rheumatologic--normal range of motion. Psychiatric--normal affect. Results & Data Results & Data Vital Signs (Past 12 Hours) Vital Signs Temp Pulse Resp BP Pulse Ox O2 Del Method 12/31/23 07:09 97.5 F L 66 16 135/67 97 Room Air 12/31/23 00:59 Room Air 12/31/23 00:59 98.4 F 71 20 175/68 H 97 Room Air 12/31/23 00:56 Room Air PG Care Time/CCT Total # of Minutes Spent Total Time Spent with Patient: Total time spent is greater than 50% in coordination of care (as documented) at patient's floor/unit and/or counseling patient: Coding Level of Care Code 51126 SUB INP/OBS CARE 2/35MIN Diagnoses Bilateral leg weakness R29.898 Elevated liver enzymes R74.8 Adrenal insufficiency E27.40 Diabetes mellitus E11.9 Diabetes mellitus type: type 2 Hypercholesterolemia E78.00 Hypertension I10 GERD (gastroesophageal reflux disease) K21.9 Adenocarcinoma, lung C34.90 Electrolyte abnormality E87.8 Time Spent (min) 35 (4) Diabetes mellitus Diabetes mellitus type: type 2
[2023-12-31] MEDS: amLODIPine BESYLATE 5 MG TAB PO SCH (21:46)
[2024-01-01] MEDS: TROLAMINE SALICYLATE 10% CRM 255 APPLN/85 GM TUBE EXT PRN (00:35)
[2024-01-01 06:44] LABS: Basophils # (auto) 0.04 K/uL (0.00-0.20); Basophils % (auto) 0.5 %; Eosinophils # (auto) 0.01 K/uL (0.00-0.50); Eosinophils % (auto) 0.1 %; Hematocrit (blood only) 39.4 % (37.0-47.0); Hemoglobin 13.2 g/dl (12.0-16.0); Immature Granulocytes # (auto) 0.15 K/uL (0.01-0.20); Lymphocytes % (auto) 17.4 %; Mean Corpuscular Hemoglobin 31.7 pg (25.0-34.0); Mean Corpuscular Hgb Conc 33.5 g/dL (32.0-36.0); Mean Corpuscular Volume 94.5 fL (80.0-100.0); Mean Platelet Volume 9.3 fL (9.4-12.4); Monocytes % (auto) 9.4 %; Neutrophils # (auto) 5.28 K/uL (1.40-6.50); Neutrophils % (auto) 70.6 %; Nucleated RBC # (auto) 0.02 K/uL (0.00-0.12); Nucleated RBC % (auto) 0.3 %; Platelet Count 219 K/uL (130-400); RDW Coefficient of Variation 15.2 % (11.5-14.5); RDW Standard Deviation 53.1 fL (36.4-46.3); Red Blood Count 4.17 M/uL (4.20-5.40); White Blood Count 7.48 K/ul (4.8-10.8)
[2024-01-01 07:09] LABS: Albumin Globulin Ratio 1.2 (0.9-2); Albumin Level 2.6 gm/dl (3.4-5.0); BUN Creatinine Ratio 25.8 (10-20); Bilirubin,Total 0.4 mg/dl (0.2-1.0); Calcium 7.6 mg/dl (8.6-10.3); Est GFR (African American) 100.2 ml/min; Est GFR (Non-African American) 86.4 ml/min; Globulin 2.1 gm/dl (2.5-4.0); Potassium 3.7 mmol/L (3.5-5.1); Total Protein 4.7 gm/dl (6.0-8.3)
[2024-01-01] MEDS ORDERED: diphenhydrAMINE 50 MG/ML VIAL IV STA (10:10)
--- NOTE | 2024-01-01 13:02 | Hospitalist Progress Note ---
Date of Service January 01, 2024 Assessment & Plan (1) Bilateral leg weakness: Plan: 73yo female presenting with progressive bilateral LE weakness with difficulty ambulating and performing ADLs. Patient has had similar complaint in the past. She does have some proximal leg weakness on exam. Sensation is intact. Reflexes are difficult to elicit. She always feels the need to lift her leg up physically Etiology is uncertain and differentials are broad, given her history of lung cell cancer, will rule out Eaton-Lambert. Obtain serology, although it is more common with small cell lung cancer CPK is elevated, will also rule out myositis. 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 Will repeat duplex Will repeat MRI lumbar (2) Elevated liver enzymes: Plan: Unclear source. Hepatocellular pattern with LDW=536 and ZXO=738. Normal AP and Tbili. No RUQ pain with palpation. Liver appears unremarkable on CT. Patient is s/p cholecystectomy - biliary ducts appear normal. -Acute otitis panel is pending -Check Acetaminophen level and Ferritin -Hold Crestor and Zetia for now -Repeat LFTs in AM (3) Adrenal insufficiency: Plan: Noted. Patient is normotensive. Na and K are within normal range -Continue home Hydrocortisone dosing -Low threshold for stress dosing (4) Diabetes mellitus: Plan: With elevated blood sugar at present = 220. Last HgbA1C on 12/02/23=6.1. Patient is on Metformin -Hold Metformin -ISS -Goal blood sugar 110 - 140 (5) Hypercholesterolemia: Plan: Chronic -Holding Crestor and Ezetimibe (6) Hypertension: Plan: Chronic. Mildly hypertensive here -Continue Losartan and Amlodipine at home doses -Monitor BP (7) GERD (gastroesophageal reflux disease): Plan: Noted -Protonix 40mg po daily (8) Adenocarcinoma, lung: Plan: Patient completed chemotherapy. Follows with Dr. Mayes of Oncology. Last PET scan 08/09/23 with stable pulmonary nodules with no evidence of FDG avid mal ignancy. (Note - CTA of the chest performed today was compared with CT from November 2021 and was read as progressive disease) Patient currently remains off chemotherapy. (9) Electrolyte abnormality: Plan: Hypophosphatemia and hypomagnesemia -Repletion -Repeat labs in AM Plan Continue to monitor in the hospital, Admission and Anticipated Discharge Date Admission Date: December 30, 2023 Subjective Patient seen and examined, still complains of generalized lower extremity weakness Review of Systems Review of Systems: All systems reviewed are negative, apart from the ones contained in the history. Physical Exam Physical Exam: The patient is awake, alert and oriented 3, well developed and well nourished, normocephalic and atraumatic, lying in bed and in no acute distress. HEENT--PERRL, EOMI, mucous membranes and oropharynx mildly dry Neck--supple. No JVD. No bruits. Thyroid normal, trachea midline, no adenopathy. Heart--normal S1 and S2. No murmurs, rubs or gallops. Lungs--clear bilaterally, no respiratory distress, no accessory muscle use. Abdomen--normal bowel sounds and soft. Extremities--no cyanosis or clubbing. No edema. Dermatologic--normal skin turgor, normal color, no abnormal lymph nodes, no rash. Neurologic--cranial nerves II through XII grossly intact. Rheumatologic--normal range of motion. Psychiatric--normal affect. Results & Data Results & Data Vital Signs (Past 12 Hours) Vital Signs Temp Pulse Resp BP Pulse Ox O2 Del Method 01/01/24 09:16 97.9 F 71 14 146/66 H 98 Room Air PG Care Time/CCT Total # of Minutes Spent Total Time Spent with Patient: Total time spent is greater than 50% in coordination of care (as documented) at patient's floor/unit and/or counseling patient: Coding Level of Care Code 03088 SUB INP/OBS CARE 2/35MIN Diagnoses Bilateral leg weakness R29.898 Elevated liver enzymes R74.8 Adrenal insufficiency E27.40 Diabetes mellitus E11.9 Diabetes mellitus type: type 2 Hypercholesterolemia E78.00 Hypertension I10 GERD (gastroesophageal reflux disease) K21.9 Adenocarcinoma, lung C34.90 Electrolyte abnormality E87.8 Time Spent (min) 35 (4) Diabetes mellitus Diabetes mellitus type: type 2
[2024-01-01] MEDS: diphenhydrAMINE 50 MG/ML VIAL IV STA (13:35)
[2024-01-01 14:08] LABS: HBSAG NON-REACTIVE (NON-REACTIVE); Hepatitis A Antibody IgM NON-REACTIVE (NON-REACTIVE); Hepatitis B Core Antibody IgM NON-REACTIVE (NON-REACTIVE)
--- NOTE | 2024-01-01 16:02 | Magnetic Resonance Report ---
MRI OF THE LUMBAR SPINE WITHOUT IV CONTRAST CLINICAL HISTORY: Lower extremity weakness. Lumbar spinal stenosis. COMPARISON STUDY: Radiographs of the lumbar spine dated 10/22/2022. Abdominal CT dated 12/30/2023. TECHNIQUE: MRI of the lumbar spine is performed utilizing various T1 and T2-weighted sequences in the axial and sagittal planes. IV contrast was not administered for this examination. FINDINGS: Lumbar spine: Marrow signal intensity is heterogeneous. Fatty changes are noted. Vertebral body heigh t and alignment are maintained throughout the lumbar spine. Small anterior and lateral marginal osteo phytes are seen throughout. The transverse and spinous processes appear intact. There is no evidence of spondylolysis. A small bone island is seen within the posterior aspect of L5. No destructive bony lesion is seen. Degenerative endplate sclerosis is seen at L5-S1. Intervertebral discs: Disc desiccation is seen throughout the upper lumbar spine. There is moderate-t o-severe loss of height at L5-S1. Minimal loss of height is seen at the remaining lumbar levels. Spinal cord: The visualized spinal cord is normal in morphology and signal intensity. The conus medul lamine terminates at the level of L1. The nerve roots of the cauda equina are normal in morphology. L1-L2: Unremarkable. L2-L3: Unremarkable. L3-L4: There is minimal posterior disc bulge. The central canal and neural foramina are patent. L4-L5: There is minimal posterior disc bulge, which abuts the transiting nerve roots. There is no sig nificant acquired compromise of the central canal. The neural foramina are patent. L5-S1: There is a tiny posterior disc osteophyte complex. There is no significant acquired compromise of the central canal. Facet arthropathy contributes to minimal left neuroforaminal narrowing. The ri ght neural foramen is clear. Sacrum: The visualized sacrum is normal in morphology and signal intensity. Soft tissues: There is mild fatty atrophy of the paraspinous musculature. The retroperitoneal structu res are grossly unremarkable but incompletely evaluated. IMPRESSION: 1. There is no large disc herniation, central canal stenosis, or neural foraminal narrowing seen thro ughout the lumbar spine. 2. Mild degenerative disc disease as above. 3. No destructive bony process is seen. Dictated: 01/01/2024 2:59 PM Transcribed: 01/01/2024 3:11 PM Sridhar [id number] [email or web address] Electronically signed by: Marcello Romero M.D. 01/01/2024 4:00 PM
--- NOTE | 2024-01-01 20:57 | Ultrasound Report ---
US arterial duplex LE BI CLINICAL HISTORY: weakness, claudication TECHNIQUE: Real-time grayscale and color and spectral Doppler ultrasound imaging of the bilateral low er extremity arteries was performed. Measurements calculated based on NASCET criteria. COMPARISON: Comparison is made to arterial duplex 04/13/2022 FINDINGS: Monophasic waveforms are seen in the right lower extremity throughout with a maximum velocity of 329 cm/s in the mid femoral artery. Flow was not visualized in the peroneal arteries. Elevated velocities are noted in the left aspect of the superficial femoral arteries measuring up to 189 cm/s. Monophasic waveforms are seen in the popliteal, posterior tibial, peroneal, and dorsalis pe dis arteries. Posterior tibial artery velocities are up to 146 cm/s, dorsalis pedis velocities measur e up to 121 cm/s. ANKLE/BRACHIAL INDEX (SAEED): Brachial: Right: 149 mmHg. Left: 153 mmHg. Ankle (dorsalis pedis): Right: 129 mmHg. Left: 131 mmHg. Ankle (posterior tibial): Right: 114 mmHg. Left: 151 mmHg. Ankle/brachial index: Right: 0.84, Left: 0.99. Reference ranges: Normal Ankle/Brachial Index (SAEED) 1.0-1.4; 0.91-0.99 borderline; < or = 0.9 abnormal (0.7-0.89 mild, 0.51-0.69 moderate, < or = 0.5 severe peripheral arterial disease). Normal Toe/Brachial Index (TBI) > or = 0.6; < 0.6 abnormal (0.34-0.59 mild, 0.12-0.34 moderate, < or = 0.11 severe peripheral arterial disease). IMPRESSION: 1. Interval worsening of vascular disease with more elevated velocities in the superficial femoral a rtery and absent flow in the peroneal artery. Increased velocities on the left as well, to a lesser e xtent. 2. Mild decrease of right ankle-brachial index compatible with peripheral vascular disease. ACT 112: Negative or not required by law. Electronically signed by: Carlos Arango M.D. 01/01/2024 8:56 PM
[2024-01-02] MEDS: CARBOHYDRATES FOR HYPOGLYCEMIA PO PRN (07:55)
--- NOTE | 2024-01-02 12:51 | Discharge Summary ---
Date of Service January 02, 2024 Admission HPI Per Admitting Provider Sophie Myers is a pleasant 73yo female with history of adenocarcinoma of the lung, peripheral vascular disease, Adrenal insufficiency, HTN, HLP and DM presenting with bilateral LE weakness. Patient reports that she has been having difficulties with her legs for years. However, over the last few weeks she has had progressive decline - worsening bilateral LE weakness and pain with standing. She states that she has to lift her legs up to change position. She has been having increased difficulty with ambulation and with ADLs such as dressing herself and bathing due to her leg weakness. She also reports becoming more short of breath with having to lift her legs. She also has ongoing lumbar back pain. She denies recent fall or trauma. No numbness or tingling in the legs. No muscle pain. No proximal shoulder pain or weakness. No concerns with bowels or bladder function. No additional complaints at this time. Additionally patient was noted to have some increasing LFTs as an outpatient. She denies EtOH use or Tylenol use. In the ER she is afebrile, HD stable and non-toxic ER Course: Potassium Phosphate 2 tabs Magnesium 1gm IV NSS x 500mL Principal Diagnosis Lower extremity weakness Discharge Exam The patient is awake, alert and oriented 3, well developed and well nourished, normocephalic and atraumatic, lying in bed and in no acute distress. HEENT--PERRL, EOMI, mucous membranes and oropharynx mildly dry Neck--supple. No JVD. No bruits. Thyroid normal, trachea midline, no adenopathy . Heart--normal S1 and S2. No murmurs, rubs or gallops. Lungs--clear bilaterally, no respiratory distress, no accessory muscle use. Abdomen--normal bowel sounds and soft. Extremities--no cyanosis or clubbing. No edema. Dermatologic--normal skin turgor, normal color, no abnormal lymph nodes, no rash. Neurologic--cranial nerves II through XII grossly intact. Rheumatologic--normal range of motion. Psychiatric--normal affect. Discharge Data Allergies Allergy/AdvReac Type Severity Reaction Status Date / Time No Known Allergies Allergy Verified 12/30/23 19:21 Consultations 12/30/23 22:59 ED Decision to Admit Stat Ordered Studies 12/30/23 18:37 CT abd pelvis IV con only Stat CT angio chest PE protocol Stat CT head/brain wo con Stat 12/30/23 18:39 CT cervical spine wo con Stat 01/01/24 10:07 US duplex leg [US arterial duplex LE BI] Routine 01/01/24 10:10 MRI Lumbar Spine [MR lumbar spine wo con] Routine Hospital Course (1) Bilateral leg weakness: 73yo female presenting with progressive bilateral LE weakness with difficulty ambulating and performing ADLs. Patient has had similar complaint in the past. She does have some proximal leg weakness on exam. Sensation is intact. Reflexes are difficult to elicit. She always feels the need to lift her leg up physically Etiology is uncertain and differentials are broad, given her history of lung cell cancer, will rule out Eaton-Lambert. Obtain serology, although it is more common with small cell lung cancer CPK is elevated, will also rule out myositis. 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 Repeat duplex shows no change from the last duplex dated 8 at [facility] MRI lumbar spine did not show any evidence of stenosis or disc bulge Serology for Eaton-Lambert, myasthenia still pending Will discharge patient if anything changes we will call her and update her. (2) Elevated liver enzymes: Unclear source. Hepatocellular pattern with FUV=988 and MSF=806. Normal AP and Tbili. No RUQ pain with palpation. Liver appears unremarkable on CT. Patient is s/p cholecystectomy - biliary ducts appear normal. -Acute otitis panel is pending -Check Acetaminophen level and Ferritin -Hold Crestor and Zetia for now -Repeat LFTs in AM (3) Adrenal insufficiency: Noted. Patient is normotensive. Na and K are within normal range -Continue home Hydrocortisone dosing -Low threshold for stress dosing (4) Diabetes mellitus: With elevated blood sugar at present = 220. Last HgbA1C on 12/02/23=6.1. Patient is on Metformin -Hold Metformin -ISS -Goal blood sugar 110 - 140 (5) Hypercholesterolemia: Chronic -Holding Crestor and Ezetimibe (6) Hypertension: Chronic. Mildly hypertensive here -Continue Losartan and Amlodipine at home doses -Monitor BP (7) GERD (gastroesophageal reflux disease): Noted -Protonix 40mg po daily (8) Adenocarcinoma, lung: Patient completed chemotherapy. Follows with Dr. Ajala of Oncology. Last PET scan 08/09/23 with stable pulmonary nodules with no evidence of FDG avid malignancy. (Note - CTA of the chest performed today was compared with CT from November 2021 and was read as progressive disease) Patient currently remains off chemotherapy. (9) Electrolyte abnormality: Hypophosphatemia and hypomagnesemia -Repletion -Repeat labs in AM Plan Continue to monitor in the hospital, Total Time Total Time Spent Total Time Spent (In Minutes): 35 Discharge Plan Discharge Items Patient Disposition: Home - Self-Care Reason For Visit: BILATERAL LE WEAKNESS Discharge Diagnosis: leg weakness, femoral artery stenosis Activity: Resume your previous activity Non-emergency contact: Primary Care Provider Call non-emergency contact if: you have any medication questions and your symptoms worsen Follow-up/Referrals: Minesh Ngo DO [Primary Care Provider] - 01/07/24 10:00 am Diet: Regular Addtl Attending Provider Instructions: please follow up with your regular PCP, oncologist and vascular surgeon Pending Studies at Discharge: Yes Studies:: lambert eaton serology, Myasthenia serology Stand-Alone Forms: [facility] vidCoin, Smoking Cessation Medications and DC Order Prescriptions: Continued omeprazole 40 mg capsule,delayed release(DR/EC) 40 mg PO QPM Qty: 90 3RF rosuvastatin 40 mg tablet 40 mg PO DAILY Qty: 90 1RF cholecalciferol (vitamin D3) 25 mcg (1,000 unit) capsule 25 mcg PO DAILY Qty: 90 1RF amlodipine [Norvasc] 10 mg tablet 5 mg PO QPM Qty: 90 3RF ezetimibe [Zetia] 10 mg tablet 10 mg PO QPM Qty: 90 1RF ondansetron HCl 4 mg tablet 4 mg PO Q8H PRN (Reason: nausea and vomiting) 5 Days Qty: 30 0RF potassium chloride 10 mEq tablet extended release 20 meq PO DAILY losartan 50 mg tablet 25 mg PO DAILY Qty: 30 2RF clopidogrel 75 mg tablet 75 mg PO DAILY (DME) blood-glucose meter [[employer] Verio Flex meter] Mis See Rx Instructions .ROUTE .MEDSUPPLY Qty: 1 0RF Rx Instructions: Test fingersticks 2x/ day (DME) lancets [[employer] Delica Plus Lancet] 33 gauge misc See Rx Instructions .ROUTE .MEDSUPPLY Qty: 100 6RF Rx Instructions: Test fingersticks 2x/day (DME) OneTouch Verio test strips Strip See Rx Instructions .ROUTE .MEDSUPPLY Qty: 100 6RF Rx Instructions: Test fingersticks 2x/day hydrocortisone 5 mg tablet See Rx Instructions PO TID Rx Instructions: Take 15mg by mouth in AM, then take 10mg by mouth 8 hours after. May need to double dose in times of illness/stress/injury. aspirin [Adult Aspirin Regimen] 81 mg tablet,delayed release (DR/EC) 81 mg PO DAILY urea 20 % cream 1 applic topical DAILY Qty: 85 5RF methylprednisolone 4 mg tablets,dose pack 0 mg PO HS Rx Instructions: STARTED 12/26/23 FOR 6 DAYS. No Action metformin 500 mg tablet extended release 24 hr 1,000 mg PO BID Qty: 60 3RF Discharge Orders: Discharge Order (Routine); Ordered 01/02/24 Ordered By: Meg Ko/Other Patient Handouts: Understanding Carbohydrates, Eating Out When You Have Diabetes, Diabetes: Meal Planning, Diabetes Carbs Fats Protein Admission Data Admit Date/Time: 12/30/23 23:53 Attending Provider: Meg Mejia Admit Provider: Victoria Field Primary Care Provider: Minesh Ngo Other Providers: Victoria Field Other Interventions: Discharge Summary Assessment (RN) Last Done: 01/02/24 11:49 Coding Level of Care Code 13079 INP/OBS DISCH >30 MIN Diagnoses Bilateral leg weakness R29.898 Elevated liver enzymes R74.8 Adrenal insufficiency E27.40 Diabetes mellitus E11.9 Diabetes mellitus type: type 2 Hypercholesterolemia E78.00 Hypertension I10 GERD (gastroesophageal reflux disease) K21.9 Adenocarcinoma, lung C34.90 Electrolyte abnormality E87.8 Time Spent (min) 35
== END 2024-01-02 12:20 | disposition home or self-care (01) | DRG 948 ==
LOC: ED 15:15 → SUATTDRO 23:53 → 3N 23:53
DX: K21.9 Gastro-esophageal reflux disease without esophagitis; R53.1 Weakness; Z79.02 Long term (current) use of antithrombotics/antiplatelets; Z79.84 Long term (current) use of oral hypoglycemic drugs; E83.42 Hypomagnesemia; I10 Essential (primary) hypertension; R26.89 Other abnormalities of gait and mobility; Z85.118 Personal history of other malignant neoplasm of bronchus and lung; Z86.16 Personal history of COVID-19; Z79.82 Long term (current) use of aspirin; E83.39 Other disorders of phosphorus metabolism; E27.40 Unspecified adrenocortical insufficiency; R74.01 Elevation of levels of liver transaminase levels; R91.8 Other nonspecific abnormal finding of lung field; E78.00 Pure hypercholesterolemia, unspecified; E87.8 Other disorders of electrolyte and fluid balance, not elsewhere classified; R74.8 Abnormal levels of other serum enzymes; Z87.891 Personal history of nicotine dependence; E11.51 Type 2 diabetes mellitus with diabetic peripheral angiopathy without gangrene